=== PATIENT | male | born 1960 | race Caucasian/White ===

== ENCOUNTER → 2017-12-11 09:18 | Outpatient (CLI) | payer MEDICARE, SELFPAY ==
--- NOTE | 2017-12-11 09:22 | XR_ITS ---
XR knee RT 4V HISTORY: Right knee pain ITS.REASON: Right knee pain ORDERING PHYSICIAN: Jeff Wolf MD PATIENT AGE: 57 years COMPARISON: 10/10/2016 FINDINGS: Weightbearing views are performed. There is slight decrease in the joint space medially with minimal osteophyte formation along the medial compartment and patellofemoral joint. No fracture or dislocation. Mild hypertrophic changes present at the fibular head. No lytic or blastic change. IMPRESSION: Mild osteoarthritis of the right knee overall not significantly changed
[2017-12-11 12:22] LABS: Basophils % 0.2 % (0.1-2.0); Eosinophils # 0.3 K/mm3 (0.0-0.4); Eosinophils % 2.5 % (0.1-12.0); Hematocrit 52.2 % (42.0-52.0); Hemoglobin 17.1 g/dL (14.1-18.0); Lymphocytes # 1.3 K/mm3 (0.7-4.5); Lymphocytes % 12.7 K/mm3 (10-50); Mean Corpuscular HGB Conc 32.8 g/dL (31.8-35.4); Mean Corpuscular Hemoglobin 29.4 pg (27.0-31.2); Mean Corpuscular Volume 89.6 fl (80-94); Monocytes # 0.4 K/mm3 (0.1-1.0); Monocytes % 4.3 % (1.7-9.3); Neutrophils # 8.1 K/mm3 (1.8-7.8); Neutrophils % 80.3 % (37.0-80.0); Platelet Count 226 K/mm3 (142-424); Red Blood Count 5.82 M/mm3 (4.60-6.20); Red Cell Distribution Width 13.3 % (11.5-17.5); White Blood Count 10.1 K/mm3 (4.8-10.8)
--- NOTE | 2017-12-11 12:23 | XR_ITS ---
XR chest 2V HISTORY: Tobacco use, history of chest pain ITS.REASON: TOBACCO USE ORDERING PHYSICIAN: Jeff Wolf MD PATIENT AGE: 57 years COMPARISON: 08/17/2016 FINDINGS: The cardiomediastinal silhouette and pulmonary vascularity are within normal limits. The lungs are clear without infiltrates, suspicious nodules, or pleural effusions. 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 IMPRESSION: No acute finding
[2017-12-11 13:46] LABS: Anion Gap 11.4 mEq/L (5-15); Blood Urea Nitrogen 16 mg/dL (7-18); Carbon Dioxide 31 mmol/L (21.0-32.0); Chloride 102 mmol/L (98-107); Estimated Glomerular Filt Rate 69 ml/min (>60); GFR (African American) 83 ML/MIN (>60); Glucose 152 mg/dL (74-106); Potassium 4.4 mmoL/L (3.5-5.1); Sodium 140 mmol/L (136-145)
== END ==
PROVIDERS: PCP Emergency Medicine; Visit Provider Orthopaedic Surgery
DX: M25.561 Pain in right knee (principal); Z01.818 Encounter for other preprocedural examination
CPT/HCPCS: 36415; 71046; 73564; 80048; 85025

== ENCOUNTER 2017-12-16 06:06 | Day surgery (SDC) | payer MEDICARE, SELFPAY ==
[2017-12-16] VITALS (10 sets, daily range): BP systolic 137–163; BP diastolic 79–91; PULSE 67–84; RESP 12–20; TEMP 36.4–43; O2SAT 94–98; BMI 55.2
--- NOTE | 2017-12-16 07:08 | P.PN_ITS ---
[facility] Anesthesia Checklist - Patient Identification Patient Identification: Arm Band - Structural Data Admitted From: Home Planned Operative Procedure/s: right knee arthroscopy Consent for Planned Operative Procedure(s) Verified: Yes Verified Documents: Surgical Consent, History and Physical - NPO Status Verified Time NPO: 00:00 - Additional verifications Anesthesia Reactions: No - Airway Assessment C-Spine Mobility Assessed: Yes TMJ Mobility Assessed: Yes Dentition: Poor Dentition - Neurological Assessment Level of Consciousness: Awake, Alert - Anesthesia Plan Anesthesia Risk discussed: Yes Anesthesia Plan: Verified ASA Class: II Anesthesia Type: General [facility] Anesthesia HX Medical History: Reports:: Cancer (colon/kidney) Denies:: Diabetes Mellitus Type 1, Diabetes Mellitus Type 2, MRSA, Seizures Other Medical History: Denies: Blood Transfusion Reaction Laterality Cases: Left: Arthroscopy Shoulder, Other, Bilateral: Arthroscopy Knee Other Surgeries: Yes: Appendectomy, Colonoscopy Amputation: No Fractures: No *Family Hx:: Coronary Artery Disease
--- NOTE | 2017-12-16 08:42 | HMH.ANESI ---
[facility] Anesthesia Record Part I Intake, IV Amount: 1,200 Estimated blood loss (mL): 0 Urine output (mL): 0 Blood Pressure: 139/81 SaO2: 95 Pulse Rate: 67 Respiratory Rate: 12 Temperature: 98.2 F Patient is:: Drowsy, Stable Stable to PACU at:: 08:40
--- NOTE | 2017-12-16 08:43 | HMH.ANESII ---
[facility] Anesthesia Record Part II Discharge Time: 09:10 Destination: [facility] PACU nurse assessment reviewed?: Yes Patient Condition:: Good Anesthesia Complications:: None
--- NOTE | 2017-12-16 08:44 | P.PN_ITS ---
[facility] Anesthesia Record Part II Discharge Time: 09:10 Destination: [facility] PACU nurse assessment reviewed?: Yes Patient Condition:: Good Anesthesia Complications:: None
--- NOTE | 2017-12-16 08:55 | PC.NURSE ---
0840-REPORT RECEIVED FROM NATACHA MELÉNDEZ/AUDI MARTÍNEZ. ICE APPLIED TO RT KNEE. IPC ON AND GOING TO LLE.
--- NOTE | 2017-12-16 09:24 | PC.NURSE ---
0908-DETAILED REPORT CALLED TO AUDI WISDOM 0910-PT TRANSPORTED TO POST OP VIA STRETCHER W/RAILS UP AND LEFT IN CARE OF AUDI WISDOM W/BED LOCKED IN LOWEST POSITION. VSS. PT STABLE.
--- NOTE | 2017-12-16 09:25 | PC.NURSE ---
0848-LMA REMOVED AT THIS TIME. PT REMAINS ON ROOM AIR, VSS.
--- NOTE | 2017-12-25 11:30 | HMH.OPNOTE ---
Date of procedure: 12/16/17 Pre-op Diagnosis:: Posterior horn medial meniscal tear right knee Post-op diagnosis:: same Procedure performed:: Arthroscopic debridement not posterior horn medial meniscal tear right knee Surgeon:: Jeff Wolf MD Anesthesia: other Estimated blood loss (mL): 5 Operative findings:: Under anesthesia, the patient's examination showed the need to be ligamentously stable. The scopic leg, no loose bodies were noted in the suprapatellar pouch, medial or lateral gutters, medial or lateral compartments, or the notch. The ACL and the PCL were intact. A 2 cm in length posterior medial meniscal tear which was complex and degenerative in nature. Note is made that this is a redictation and as such, reported findings here may be compromised. Referral to the operative photographs would be indicated for more detail. Operative note:: The patient was taken to the operating room and placed in the supine position. An appropriate anesthetic was administered and the contralateral leg placed in a well leg mtz. The right leg was prepped and draped in the usual sterile fashion. The proposed portal sites were injected with lidocaine with epinephrine and a lateral portal established at the joint line just lateral to the patella tendon. The 4 mm arthroscope was inserted and initial examination of the knee conducted. We placed a spinal needle and at the proposed anterior inferior medial site and use it to optimize positioning of this portal. The entire operation was conducted through these 2 portals. After thorough examination with the findings as noted above, we placed the arthroscope in the medial compartment stressing against the lateral post as needed, and assess the meniscal tear with a probe. We used pronation of Arthrex meniscal cutters and a Tenzin shaver to remove the torn portions of the meniscus back to stable tissue. Bits and pieces of the meniscus were removed as needed to improve visualization and also to ensure that no loose bodies remained within the knee. We palpated the popliteal fossa vigorously and extend extended knees work any loose bodies forward so they could be removed. Checked again in the suprapatellar pouch, place the patient in figure 4 position, stressed again against the medial pose, checked the notch again, and checked both gutters. We irrigated and then suctioned excess fluid from the knee. The arthroscopic equipment was then withdrawn and the portals closed and dressings applied. Condition: stable Disposition: PACU Complications:: None
== END 2017-12-16 09:50 | disposition home or self-care (01) ==
LOC: OR 06:08
PROVIDERS: Family Provider Emergency Medicine; PCP Emergency Medicine; Visit Provider Orthopaedic Surgery
PROC: (CPT 29870; principal; 2017-12-16 07:30)
DX: M23.221 Derangement of posterior horn of medial meniscus due to old tear or injury, right knee (principal); Z72.0 Tobacco use
CPT/HCPCS: 29881; 96374; J2405

== ENCOUNTER → 2019-02-03 09:39 | Outpatient (CLI) | payer MEDICARE, SELFPAY ==
--- NOTE | 2019-02-03 09:47 | XR_ITS ---
XR chest 2V HISTORY: ITS.REASON: H/O TOBACCO USE ORDERING PHYSICIAN: Ky Porras PATIENT AGE: 58 years COMPARISON: 12/11/2017 FINDINGS: The cardiomediastinal silhouette and pulmonary vascularity are within normal limits. The lungs are clear without infiltrates, suspicious nodules, or pleural effusions. There is ankylosis of the thoracic spine. There is increased density along the costal vertebral junction on the left involving the 10th rib could be due to an old fracture or bony hypertrophic change not significant change.. IMPRESSION: Chronic changes, no acute finding
[2019-02-03 10:20] LABS: Microscopic, Urine URINE MICROSCOPIC (MICROSCOPIC)
[2019-02-03 11:04] LABS: Appearance,Urine CLEAR (Clear); Blood, Urine Negative (Negative); Color,Urine YELLOW (Yellow); Glucose,Urine (UA) Negative (Negative); Ketones,Urine TRACE (Negative); Leukocyte Esterase,Urine Negative (Negative); Nitrate,Urine Negative (Negative); Protein,Urine TRACE (Negative); Specific Gravity, Urine >= 1.030 (1.005-1.030); Urobilinogen,Urine 0.2 EU/dl (0.2)
[2019-02-03 11:14] LABS: Bilirubin,Urine Negative (Negative)
[2019-02-03 11:15] LABS: Basophils # 0.1 K/mm3 (0-0.2); Basophils % 0.6 % (0.1-2.0); Eosinophils # 0.2 K/mm3 (0.0-0.4); Eosinophils % 1.6 % (0.1-12.0); Hematocrit 47.2 % (42.0-52.0); Hemoglobin 15.9 g/dL (14.1-18.0); Lymphocytes # 1.2 K/mm3 (0.7-4.5); Lymphocytes % 12.2 % (10-50); Mean Corpuscular HGB Conc 33.8 g/dL (31.8-35.4); Mean Corpuscular Hemoglobin 29.6 pg (27.0-31.2); Mean Corpuscular Volume 87.7 fl (80-94); Monocytes # 0.5 K/mm3 (0.1-1.0); Monocytes % 4.7 % (1.7-9.3); Neutrophils % 80.9 % (37.0-80.0); Platelet Count 253 K/mm3 (142-424); Red Blood Count 5.38 M/mm3 (4.60-6.20); Red Cell Distribution Width 13.2 % (11.5-17.5); White Blood Count 9.9 K/mm3 (4.8-10.8)
[2019-02-03 11:24] LABS: Activated Partial Thrombo Time 30.1 seconds (23.6-34.0); INR 1.02 (0.9-1.1); Prothrombin Time 10.5 seconds (9.4-11.8)
[2019-02-03 11:41] LABS: Bacteria,Urine 2+ /lpf; Calcium Oxalate Crystals,Urine 3+ /lpf; Mucus,Urine 2+ /lpf; Squamous Epithelial Cell,Urine Occasional #/hpf (0-5); WBC,Urine Occasional #/hpf (0-3)
[2019-02-03 13:02] LABS: Alanine Aminotransferase 30 U/L (12-78); Albumin/Globulin Ratio 1.3 (1.1-1.8); Alkaline Phosphatase 90 U/L (46-116); Anion Gap 18.3 mEq/L (5-15); Aspartate Amino Transferase 18 U/L (15-37); Bilirubin,Total 0.3 mg/dL (0.2-1.0); Blood Urea Nitrogen 14 mg/dL (7-18); Calcium 9.2 mg/dL (8.5-10.1); Carbon Dioxide 24 mmol/L (21.0-32.0); Chloride 104 mmol/L (98-107); Creatinine,Serum 0.89 mg/dL (0.70-1.30); Estimated Glomerular Filt Rate 87 ml/min (>60); GFR (African American) 106 ML/MIN (>60); Glucose 97 mg/dL (74-106); Potassium 4.3 mmoL/L (3.5-5.1); Sodium 142 mmol/L (136-145)
[2019-02-03 13:56] LABS: Hemoglobin A1C 5.5 % (0.0-7.0)
== END ==
PROVIDERS: PCP Emergency Medicine; Visit Provider Orthopaedic Surgery
DX: Z01.818 Encounter for other preprocedural examination (principal); R53.83 Other fatigue; I49.9 Cardiac arrhythmia, unspecified; E11.9 Type 2 diabetes mellitus without complications; M54.9 Dorsalgia, unspecified
CPT/HCPCS: 36415; 71046; 80053; 81001; 83036; 85025; 85610; 85730; 87070; 87077; 87086; 87186; 93005

== ENCOUNTER → 2019-09-01 11:48 | Outpatient (CLI) | payer MEDICARE, SELFPAY ==
--- NOTE | 2019-09-01 11:52 | XR_ITS ---
PROCEDURE: XR SHOULDER RT MIN 2V CLINICAL INDICATION: Right shoulder pain COMPARISON: SHOU3 [id number] VIEWS from 01/24/2015 SHOU3L [id number] VIEWS from 10/11/2016 FINDINGS: There are osteoarthritic changes of the acromioclavicular joint. No fracture or dislocation. No lytic or blastic change. There are mild osteoarthritic changes also of the glenohumeral joint IMPRESSION: Mild osteoarthritis otherwise negative Dictated by: Cliff Eddy MD 09/01/2019 12:33 Electronically signed by Cliff Eddy MD in [place] 09/01/2019 12:33
== END ==
PROVIDERS: PCP Nurse Practitioner Family; Visit Provider Nurse Practitioner Family
DX: M25.511 Pain in right shoulder (principal)
CPT/HCPCS: 73030

== ENCOUNTER 2021-01-26 14:40 | Emergency (ER) | payer MEDICARE, SELFPAY ==
[2021-01-26 14:52] VITALS: BP 155/92; PULSE 81; RESP 13; TEMP 36.1; O2SAT 99; BMI 27.6
--- NOTE | 2021-01-26 15:02 | XR_ITS ---
PROCEDURE: XR FOOT RT MIN 3V CLINICAL INDICATION: pain COMPARISON: CR FTL3 FOOT-LT-3 VIEWS from 10/10/2016 FINDINGS: No fracture or dislocation. No lytic or blastic change. There is normal mineralization. The joint spaces are well-preserved. No significant degenerative/arthritic changes. No erosive changes evident. Other findings:None. IMPRESSION: No acute findings. Dictated by: Cliff Eddy MD 01/26/2021 15:37 Cliff Eddy MD in [place] 01/26/2021 15:37
--- NOTE | 2021-01-26 15:22 | HMH.EDUTC ---
[facility] Disposition Clinical Impression: Tendinitis of right foot Disposition: Home, Self-Care Condition on Discharge: Good Instructions: Tendinopathy, Achilles Tendinopathy, DI for Achilles Tendinopathy, DI for Foot Pain Additional Instructions: Rest the extremity, Elevate the extremity as tolerated while you are resting. Take the medications as directed. Follow up with Dr. Foote (podiatry) if you continue to have heel pain. I put in a referral but you need to call her office and schedule an appointment. Follow up with your regular doctor. GO TO THE ER FOR ANY WORSENING SYMPTOMS Prescriptions: predniSONE [Prednisone 20mg Tab] 20 mg PO BID 4 Days #8 tab Transmission Status: Received by [facility] Referrals: Regan Rodriguez MD [Primary Care Provider] - Elissa Foote DPM [Staff Physician] - Time of Disposition: 15:46 Medical Decision Making - Medical Records Medical records reviewed: No: I reviewed the patient's medical records. - Nikita Inquiry Pt receiving controlled substance: No Vital Signs: 01/26/21 14:52 01/26/21 15:50 Temperature 97 F L 98 F Temperature Source Tympanic Pulse Rate 79 Pulse Rate [Right] 81 Respiratory Rate 13 16 Blood Pressure 148/80 H Blood Pressure [Right Arm] 155/92 H Blood Pressure Mean [Right Arm] 113 Blood Pressure Source [Right Arm] Automatic Cuff Blood Pressure Position [Right Arm] Sitting 02 Sat by Pulse Oximetry 99 Oxygen Delivery Method Room Air [facility] HPI - General Stated complaint: right foot and heel pain, unknown origin Time Seen by Provider: 01/26/21 15:22 Mode of Arrival: Ambulatory Source of Information: Patient Limitations: No Limitations Description of Symptoms (Recalled from Triage Doc. by RN): pt is having pain 8/10 on his right heel. he is having to use crutches and this has been ongoing for about a week. HEENT Symptoms (Recalled from RN notes): No Resp Symptoms (Recalled from RN notes): No Skin Symptoms (Recalled from RN notes): No MS Symptoms (Recalled from RN notes): Yes (R heel pain) Functional Status (Recalled from RN notes): na - History of Present Illness Provider Complaint: He states that for the past 4 days he has had right heel pain. He denies any known injury. He states that his pain started after he got the 2nd dose of the Moderna covid-19 vaccine. - Related Data Home Medications Medication Instructions Recorded Confirmed baclofen 10 mg tablet 10 mg PO BID tab 12/11/17 05/17/20 gabapentin 800 mg tablet 800 mg PO TID 12/11/17 05/17/20 morphine 30 mg capsule,extended 30 mg PO BID PRN cap 12/11/17 05/17/20 release 24 hr multiphase oxycodone 10 mg tablet 10 mg PO Q8H PRN tab 12/11/17 05/17/20 trazodone 50 mg tablet 50 mg PO QPM PRN tab 12/11/17 05/17/20 meloxicam 15 mg tablet PO 01/16/20 05/17/20 morphine 30 mg tablet,extended PO 01/16/20 05/17/20 release trazodone 150 mg tablet PO 01/16/20 05/17/20 Previous Rx's Medication Instructions Recorded loperamide 2 mg capsule 2 mg PO Q4H PRN #20 cap 01/16/20 prednisone 20 mg tablet 20 mg PO BID 5 Days #10 tab 05/18/20 naproxen 500 mg tablet 500 mg PO BID PRN #30 tab 06/02/20 diclofenac sodium 1 % topical gel 2 g TOPICAL QID #100 g 06/03/20 predniSONE [Prednisone 20mg 20 mg PO BID 4 Days #8 tab 01/26/21 Tab] Allergies Allergy/AdvReac Type Severity Reaction Status Date / Time No Known Allergies Allergy Verified 01/26/21 14:54 - Worker's Comp Is this a Worker's Comp case?: No [facility] History - Hepatitis A Screen Drug use history?: No High risk sexual behaviors?: No History of sexually transmitted infection?: No Currently employed?: No Childcare worker?: No Do you have indoor plumbing?: Yes Do you have electricity?: Yes Attestation statement:: This patient has been screened for Hepatitis A risk factors. I have reviewed the patient's past medical history: Yes Medical History: Reports:: Cancer Denies:: Diabetes Amisha
[2021-01-26 15:50] VITALS: BP 148/80; PULSE 79; RESP 16; TEMP 36.6
== END 2021-01-26 15:52 | disposition home or self-care (01) ==
PROVIDERS: Emergency Provider Nurse Practitioner Family; PCP Emergency Medicine
DX: M77.51 Other enthesopathy of right foot and ankle (principal)
CPT/HCPCS: 73630; 99202; G0463

== ENCOUNTER 2022-03-06 10:44 | Emergency (ER) | payer MEDICARE, SELFPAY ==
[2022-03-06 11:13] VITALS: BP 144/96; PULSE 87; RESP 20; TEMP 36.7; O2SAT 98; BMI 28.8
--- NOTE | 2022-03-06 11:37 | HMH.EDUTC ---
[facility] Disposition Clinical Impression: Low back pain Qualifiers: Chronicity: unspecified Back pain laterality: unspecified Sciatica presence: without sciatica Qualified Code(s): M54.50 - Low back pain, unspecified Disposition: Home, Self-Care Condition on Discharge: Good Instructions: DI for Chronic Pain -- Adult Additional Instructions: Take prescribed medication as prescribed FOllow up with your Family Doctor for further treatment and evaluation if pain continues Warm compresses and over the counter patches may help with pain Straight to ER if any life threatening symptoms Referrals: Nahun Hooker APRN [Primary Care Provider] - As needed Time of Disposition: 12:18 Medical Decision Making - Nikita Inquiry Pt receiving controlled substance: No Nikita was queried for this patient: No Vital Signs: 03/06/22 11:13 Temperature 98.0 F Temperature Source Oral Pulse Rate [Left] 87 Respiratory Rate 20 Blood Pressure [Right Arm] 144/96 H Blood Pressure Mean [Right Arm] 112 02 Sat by Pulse Oximetry 98 Orders (Tests/Meds): ED MEDICATIONS Discontinued Medications Generic Name Dose Route Start Last Admin Trade Name Caren PRN Reason Stop Dose Admin Ketorolac Tromethamine 30 mg 03/06/22 11:51 03/06/22 12:07 Ketorolac 60mg/2ml Vial IM 03/06/22 11:52 30 mg ONCE ONE Administration Methylprednisolone Sodium Succinate 125 mg 03/06/22 11:51 03/06/22 12:07 Methylprednisolone Sod Succ 125mg Vial IM 03/06/22 11:52 125 mg ONCE ONE Administration Medical Decision Narrative: Patient denies new injury discussed xray and patient declined [facility] HPI - General Stated complaint: back pain Time Seen by Provider: 03/06/22 11:37 Mode of Arrival: Ambulatory Source of Information: Patient Limitations: No Limitations Description of Symptoms (Recalled from Triage Doc. by RN): pt c/o back pain. states he pulled something in his back. he was seen in dr peñaloza office on 03/01. he was given a shot and medicattion but he can not remember what it was. 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 States that he seen PCP last week and was given shot and some medication but cant remember what it was but he has taken it all State that it did help but he is still having pain with movement - Related Data Home Medications Medication Instructions Recorded Confirmed gabapentin 800 mg tablet 800 mg PO TID 07/05/21 02/28/22 oxycodone 10 mg tablet 10 mg PO Q8H PRN 07/05/21 02/28/22 morphine 15 mg tablet,extended 15 mg PO tab 09/26/21 02/28/22 release trazodone 150 mg tablet 150 mg PO tab 09/26/21 02/28/22 Previous Rx's Medication Instructions Recorded naproxen 500 mg tablet 500 mg PO BID #30 tab 07/05/21 baclofen 10 mg tablet 10 mg PO Q8H PRN #30 tab 02/28/22 ketorolac 10 mg tablet 10 mg PO TID PRN #30 tab 02/28/22 Allergies Allergy/AdvReac Type Severity Reaction Status Date / Time No Known Allergies Allergy Verified 03/06/22 11:16 - Worker's Comp Is this a Worker's Comp case?: No Is this an H Worker's Comp?: No Is this a Patsy Worker's Comp?: No H History - Hepatitis A Screen Drug use history?: No High risk sexual behaviors?: No History of sexually transmitted infection?: No Currently employed?: No Childcare worker?: No Do you have indoor plumbing?: Yes Do you have electricity?: Yes Attestation statement:: This patient has been screened for Hepatitis A risk factors. I have reviewed the patient's past medical history: Yes Medical History: Reports:: Cancer Denies:: Diabetes Mellitus Type 1, Diabetes Mellitus Type 2, MRSA, Seizures Other Medi
[2022-03-06 12:20] VITALS: BP 144/96; PULSE 87; RESP 20; TEMP 36.7
== END 2022-03-06 12:26 | disposition home or self-care (01) ==
PROVIDERS: Emergency Provider Nurse Practitioner; PCP Nurse Practitioner Family
DX: M54.50 Low back pain, unspecified (principal); M19.90 Unspecified osteoarthritis, unspecified site; Z79.899 Other long term (current) drug therapy; Z85.9 Personal history of malignant neoplasm, unspecified; Z87.891 Personal history of nicotine dependence; Z82.49 Family history of ischemic heart disease and other diseases of the circulatory system; Z82.69 Family history of other diseases of the musculoskeletal system and connective tissue; Z81.8 Family history of other mental and behavioral disorders
CPT/HCPCS: 96372; 99213; G0463

== ENCOUNTER → 2022-11-29 10:01 | Outpatient (CLI) | payer MEDICARE, SELFPAY ==
--- NOTE | 2022-11-29 10:02 | MR_ITS ---
FINAL REPORT TECHNIQUE: Multiplanar and multisequence imaging of the lumbar spine was obtained without contrast. CLINICAL HISTORY: Low back pain COMPARISON: none FINDINGS: There is normal alignment of the lumbar vertebral bodies. Vertebral body height is preserved. The spinal cord ends at the level of L1. There is normal signal intensity within the substance of the distal spinal cord. Bone marrow signal intensity is normal. No acute paraspinal abnormality is identified. The right kidney is not identified in its expected location. L1-2: No disc herniation, canal stenosis, or foraminal narrowing. L2-3: No focal disc herniation. Bilateral facet osteoarthropathy. No central canal stenosis. Mild bilateral foraminal narrowing. L3-4: Annular disc bulge with bilateral facet osteoarthropathy. Moderate canal stenosis, likely has both developmental and degenerative component. Mild bilateral foraminal narrowing. L4-5: Annular disc bulge. Mild degenerative endplate changes and bilateral facet arthropathy. Severe canal stenosis. No foraminal stenosis. L5-S1: Mild annular disc bulge and facet osteoarthropathy. No canal stenosis. Mild right and [id number] left foraminal narrowing. IMPRESSION: Multilevel degenerative disc disease. There is also likely a component of developmental canal stenosis in addition to degenerative change. Reviewed, Interpreted and Dictated by Tawana Hilario MD Transcribed by Maggie Thomas Authenticated and [facility]
== END ==
PROVIDERS: PCP Family Medicine; Visit Provider Nurse Practitioner Family
DX: M54.50 Low back pain, unspecified (principal)
CPT/HCPCS: 72148; 76376

== ENCOUNTER → 2022-12-12 09:59 | Outpatient (POV) | payer MEDICARE, SELFPAY ==
[2022-12-12 10:03] VITALS: BP 141/90; PULSE 86; RESP 18; O2SAT 98; BMI 28.5
--- NOTE | 2022-12-12 10:25 | EXP.PAIN.OV ---
HPI Data of Consult Patient: new to practice Consult date: 12/12/22 Requesting Physician: Shellie Gar APRN Primary Care Provider: Regan Rodriguez MD Consult Narrative Reason for consult: Low back pain, right leg pain History of present illness: Mr. Cook is a 62 year old male who presents today as a new patient. He is a referral from Dr. Alexandra's office. Today he rates his pain a 7 out of 10. Patient states his pain is all in his low back with radiating symptoms into his right leg. Patient does describe this as a aching sensation with numbness and tingling. Patient states this is all related to a injury back in the involving a forklift. Patient states that it did get stuck and then he tried to manually move it and caused significant trauma. Patient states this is progressively worsened over time. Patient states he only has 1 kidney and cannot tolerate any NSAIDs due to this. Patient has tried Tylenol with no additional improvement. Patient states that heat aggravates his pain symptoms however ice does help. Patient does use Biofreeze however this is only temporary relief. Patient has been in pain management in [place] by Dr. Hendrickson for quite some time. Patient states he has had multiple injections including 24 down his spine as well as ablations with minimal improvement. Patient is currently managed with oxycodone 10 mg twice a day, gabapentin 800 mg 3 times a day and morphine sulfate ER 15 mg daily from this office. Patient denies any side effects from these medications. Patient states at his last visit with them he did tell them he did not want to continue to do injections due to his worsening pain symptoms. Patient is currently starting physical therapy and at this time states he cannot tell whether or not if he is getting any additional relief. Patient states he is trying to avoid having additional neurosurgery such as a fusion or laminectomy. Patient denies any prior surgical intervention. His Nikita is [phone]. Its been reviewed and appropriate. CC: Shellie Gar APRN [facility] Disclaimer: The information contained in this section may have been updated after the patient was seen, as this information can be updated by other users. Medical History (Updated 12/12/22 @ 10:30 by Shellie Gar APRN) Back Pain Social History (Updated 12/12/22 @ 10:24 by Soumya E Works, RN) Smoking Status: Former smoker second hand exposure: No alcohol intake: never substance use type: denies use current occupational status: retired Travel in the last 8 weeks: None household members: family housing: house Review of Systems Review of Systems Review of systems:: pertinent systems reviewed and negative unless documented below Review of systems (narrative): Review of Systems: General: No recent weight changes, no fever, no sleep disturbances Respiratory: No cough, no shortness of air, no recurring pulmonary infections Cardiovascular/peripheral vascular: No chest pain, no palpitations, no edema, no shortness of breath Gastrointestinal: No new onset incontinence, normal bowel movements reported Genitourinary: No new onset incontinence Musculoskeletal: Low back pain, right leg pain Psychiatric: [Normal mood/affect] Neurological: [Denies weakness in extremities], [denies balance issues] Meds Home Medications and Allergies Home Medications Medication Instructions Recorded Confirmed Type gabapentin 800 mg tablet 800 mg PO TID Pain 07/05/21 12/12/22 History oxycodone 10 mg tablet 10 mg PO Q8H PRN Pain 07/05/21 12/12/22 History morphine 15 mg tablet,extended 15 mg PO DIRECTED Pain 09/26/21 12/12/22 History release ketorolac 10 mg tablet 10 mg PO TID PRN pain #30 tabs 02/28/22 12/12/22 Rx baclofen 10 mg tablet See Rx Instructions .Route 12/12/22 12/12/22 History .COMPLEX Pain naproxen 500 mg tablet See Rx Instructions .Route 12/12/22 12/12/22 History .COMPLEX Pain trazodone 150 mg table
== END ==
PROVIDERS: PCP Emergency Medicine; Visit Provider Nurse Practitioner Family
DX: M51.36 Other intervertebral disc degeneration, lumbar region (principal); G89.29 Other chronic pain; M79.604 Pain in right leg; M54.41 Lumbago with sciatica, right side; M48.00 Spinal stenosis, site unspecified; M47.816 Spondylosis without myelopathy or radiculopathy, lumbar region
CPT/HCPCS: 99202; G0463

== ENCOUNTER → 2023-01-10 11:05 | Outpatient (POV) | payer MEDICARE, SELFPAY ==
--- NOTE | 2023-01-10 11:28 | EXP.PAIN.SOA ---
[facility] Pain Management SOAP Note Subjective:: Mr. Cook is a 62 year old male who presents for follow-up. We are currently treating the patient for degenerative disc disease of lumbar spine with lumbar radiculopathy symptoms, lumbar facet arthropathy, lumbar spinal stenosis, multilevel disc bulges, chronic pain, right leg pain. Today he rates his pain a 8 out of 10.? Patient denies any new trauma or injury. Patient denies any change location or type of pain he experiences. He continues to state his pain is all in his low back with radiating symptoms into his right leg.? Patient does describe this as a aching sensation with numbness and tingling.? Patient has had multiple injections in the past from a different facility and states that he did not get significant relief and is not interested in injective therapy. 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 He only has 1 kidney and cannot tolerate NSAID use. Patient has tried and failed conservative therapy such as oral medications, heat and ice, topicals. He continues to go to physical therapy however has not noticed if it is helping him at this point. He states he frequently is very sore following his visits. At our last visit we did discuss trying the patient is a pleasant trial however he states today that he is not interested in this option right now. He states he has been having some eye issues and is scheduled for cataract surgery on the . Patient is currently managed with oxycodone 10 mg twice a day, gabapentin 800 mg 3 times a day and morphine sulfate ER 15 mg daily from this office.? Patient denies any side effects from these medications.? His Nikita is [phone].? Its been reviewed and appropriate. Review of Systems: General: No recent weight changes, no fever, no sleep disturbances Respiratory: No cough, no shortness of air, no recurring pulmonary infections Cardiovascular/peripheral vascular: No chest pain, no palpitations, no edema, no shortness of breath Gastrointestinal: No new onset incontinence, normal bowel movements reported Genitourinary: No new onset incontinence Musculoskeletal: Low back pain Psychiatric: [Normal mood/affect] Neurological: [Denies weakness in extremities], [denies balance issues] Objective:: Physical Exam: General: Alert and oriented x3, no acute distress, pleasant and cooperative Lungs: Respirations even and unlabored, symmetrical chest expansion Eyes: PERRL Musculoskeletal: Flexion and extension of lumbar [spine] somewhat guarded secondary to pain, [antalgic gait noted] Neurological: Speech clear, no gross sensory deficit Assessment:: Degenerative disc disease of lumbar spine with lumbar radiculopathy symptoms, lumbar facet arthropathy lumbar spinal stenosis multilevel bulging disc, chronic pain, right leg pain Plan:: Patient continues to experience significant pain in his low back with radiating symptoms. I have reviewed over with the patient the intrathecal pain pump trial and explained that if he does decide to proceed forward with this plan of care in the future that he can contact our office and make his next follow-up appointment. Patient has been instructed to contact the clinic with any concerns before the next appointment. Dr. Maravilla has reviewed this note and agrees with this plan of care. This note was dictated using voice recognition software and make contain errors or omissions. [facility] Disclaimer: The information contained in this section may have been updated after the patient was seen, as this information can be updated by other users. Medical History (Updated 12/12/22 @ 10:30 by Shellie Gar APRN) Back Pain Social History (Updated 12/12/22 @ 10:24 by Soumya Gomez RN) Smoking Status: Former smoker second hand exposure: No alcohol intake: never substance use type: denies use current occupational status: retired Travel in the last 8 weeks: None household members: family
[2023-01-10 11:54] VITALS: BP 137/100; PULSE 82; RESP 18; O2SAT 97; BMI 30.2
== END ==
PROVIDERS: PCP Emergency Medicine; Visit Provider Nurse Practitioner Family
DX: M51.16 Intervertebral disc disorders with radiculopathy, lumbar region (principal); M48.061 Spinal stenosis, lumbar region without neurogenic claudication; M47.26 Other spondylosis with radiculopathy, lumbar region; M79.604 Pain in right leg; G89.29 Other chronic pain
CPT/HCPCS: 99212; G0463

== ENCOUNTER 2023-01-29 10:30 | Outpatient (RCR) | payer MEDICARE, SELFPAY ==
--- NOTE | 2022-12-06 16:08 | HMH.PTOPEV ---
PT Outpatient Evaluation Rehab PT Outpatient Evaluation Start: 12/06/22 15:46 Freq: Status: Active Protocol: Document 12/06/22 15:48 PHOCALVIN (Rec: 12/06/22 16:08 PHORNE [id number]) E-signed By Jeovany Laguna, PT Outpatient Therapy Subjective History Subjective History Thi is the initial PT eval for Jose Francisco Alvarezood 62 yowm who presents with c/o chronic LBP x 3-4 yrs with gradually worsening symptoms. He reports intermittent numbness and tingling in the R LE also. He reports hx of R BERNABE which also results in further R LE pain. He reports increased pain with all ADLs and transfers. Pain is decreased with ice and exacerbated with heat. MRI was performed which shows L3/4 -L5/S1 disc bulges. He reports PMH of HTN. Chief Complaint Pain,Stiff Symptom Type Ache,Burning Symptoms Relieved By Rest/Positioning,Ice Symptoms Aggravated By Standing,Physical Activity, Walking,Lifting Prior Functional Limitations None Current Functional Limitations Lifting,Housework,Standing, Recreation Activity,Walking Symptom Description Constant but Variable Level of pain today (0-10) 7 Pain scale - at its worst (0-10) 10 Lumbopelvic Eval Posture Lumbar Spine Posture Standing Position Decreased Lordosis Palapation tenderness bilateral lumbar spinal tenderness Yes paraspinal tenderness Yes Lumbar/Sacral Palpation Findings Tenderness Accessory Movement L-spine Vertebrae Accessory Movements Central P/A [place] that Elicit Symptoms L2 bilateral L3 bilateral L4 bilateral L5 bilateral S1 bilateral Range of Motion Lumbar Spine Active Flexion Range of 0-35 Motion (degrees) Lumbar Spine Active Extension Range of 0-10 Motion (degrees) Left Lumbar Spine Lateral Flexion Active 0-10 Range of Motion (degrees) Right Lumbar Spine Lateral Flexion 0-10 Active Range of Motion (degrees) Manual Muscle Test Bilateral Knee Extension Strength Grade 5 Normal Knee Flexion Strength Grade 5 Normal Hip Flexion Strength Grade 3+ Fair+ Hip Abduction Strength Grade 3+ Fair+ Hip Adduction Strength Grade 4 Good Extensor Hallu
--- NOTE | 2023-01-11 10:19 | HMH.RHREAS ---
Rehab Reassessment Rehab OP Re-assessment Start: 01/11/23 10:12 Freq: Status: Active Protocol: Document 01/11/23 10:12 JOANA (Rec: 01/11/23 10:19 PHOCALVIN [id number]) E-signed By Jeovany Laguna, PT Rehab Re-assessment Subjective Subjective Pt reports pain this date 05/20 in L side low back/SI area. I haven't had any pain down my legs for a couple weeks, but my back over here on the left is hurting worse. Objective Objective Notes MMT: B hip FLEX 4/5, ABD 4/5, ADD 4/5. AROM LUMBAR SPINE (in deg): FLEX= 0-50, EXT= 0-12, L SB= 0 -15, R SB= 0-10. PAIN: 05/20 CURRENTLY. No radicular symptoms noted this date in either LE. Assessment Progress Assessment Progressing as Expected Assessment Notes He has shown significant improvements in lumbar ROM, especially in FLEX, with increased strength as well. He continues to have quite a bit of pain in the low back, but definite centralization of his symptoms without radiculopathy noted in B LE at this time. Continues to require further therapy to meet short and termination clerk goals . Patient goals met ST,3,[address],4,5 LT,2,3,4,5,6 ,7,8 Revised Goals none Plan Plan Continue per initial POC. Frequency of Therapy 2 x/wk Duration of therapy 4 wks Time and Billing Re-Eval Time 16 Re-Eval Billing Units 1 PHYSICIAN CERTIFICATION: I certify the specified therapy services for Jose Francisco Cook are required, authorized, and reviewed every 30 days.
== END 2023-01-29 10:35 | disposition home or self-care (01) ==
LOC: PT 10:30
PROVIDERS: PCP Family Medicine; Visit Provider Nurse Practitioner Family
DX: M54.50 Low back pain, unspecified (principal); M51.36 Other intervertebral disc degeneration, lumbar region
CPT/HCPCS: 97010; 97012; 97014; 97110; 97163; 97164; G0283

== ENCOUNTER → 2023-01-31 23:21 | Outpatient (CLI) | payer MEDICARE, SELFPAY ==
[2023-01-31 18:21] LABS: Basophils # 0.1 K/mm3 (0-0.2); Basophils % 0.6 % (0.1-2.0); Eosinophils # 0.2 K/mm3 (0.0-0.4); Eosinophils % 2.2 % (0.1-12.0); Hematocrit 47.2 % (42.0-52.0); Hemoglobin 15.6 g/dL (14.1-18.0); Lymphocytes # 1.1 K/mm3 (0.7-4.5); Lymphocytes % 10.7 % (10-50); Mean Corpuscular Hemoglobin 28.7 pg (27.0-31.2); Monocytes # 0.7 K/mm3 (0.1-1.0); Monocytes % 6.7 % (1.7-9.3); Neutrophils # 7.9 K/mm3 (1.8-7.8); Neutrophils % 79.7 % (37.0-80.0); Platelet Count 252 K/mm3 (142-424); Red Blood Count 5.43 M/mm3 (4.60-6.20); Red Cell Distribution Width 13.8 % (11.5-17.5); White Blood Count 9.9 K/mm3 (4.8-10.8)
[2023-01-31 18:30] LABS: Alanine Aminotransferase 45 U/L (12-78); Albumin Level 4.2 g/dl (3.5-5.0); Alkaline Phosphatase 78 U/L (38-126); Anion Gap 7.6 mEq/L (5-15); Aspartate Amino Transferase 38 U/L (17-59); Bilirubin,Total 0.6 mg/dl (0.2-1.3); Blood Urea Nitrogen 25 mg/dl (9-20); Calcium 8.7 mg/dl (8.4-10.2); Carbon Dioxide 28 mmol/L (22.0-30.0); Chloride 104 mmol/L (98-107); Chol/HDL Ratio 3.9 (1-3.5); Cholesterol 120 mg/dl (140-200); Estimated Glomerular Filt Rate 61 ml/min (>60); GFR (African American) 74 ML/MIN (>60); Globulin 2.1 g/dL (1.3-3.2); Glucose 88 mg/dl (74-100); HDL Cholesterol 31 mg/dl (40-60); Potassium 4.6 mmoL/L (3.5-5.1); Sodium 135 mmol/L (136-145); Total Protein,Serum 6.3 g/dl (6.3-8.2); Triglycerides 235 mg/dl (30-150); VLDL Cholesterol 47 mg/dL (0-40)
[2023-01-31 18:42] LABS: Direct LDL Cholesterol 71.72 mg/dL (100-129)
[2023-01-31 19:00] LABS: Prostate Specific Ag Screen 0.5 ng/ml (0.0-4.0); Thyroid Stimulating Hormone 0.17 uIU/mL (0.465-4.68)
== END ==
PROVIDERS: PCP Nurse Practitioner Family; Visit Provider Nurse Practitioner Family
DX: I10 Essential (primary) hypertension (principal); R79.89 Other specified abnormal findings of blood chemistry; E05.90 Thyrotoxicosis, unspecified without thyrotoxic crisis or storm; Z12.5 Encounter for screening for malignant neoplasm of prostate; M54.41 Lumbago with sciatica, right side
CPT/HCPCS: 80053; 80061; 84443; 85025; G0103

== ENCOUNTER → 2023-09-23 16:00 | Outpatient (CLI) | payer MEDICARE, SELFPAY ==
[2023-09-23 12:20] LABS: Influenza A, PCR Not Detected (NotDetected); Influenza B, PCR Not Detected (NotDetected)
[2023-09-23 13:33] LABS: Coronavirus 19, PCR Detected (NotDetected)
== END ==
PROVIDERS: PCP Nurse Practitioner Family; Visit Provider Internal Medicine
DX: R06.02 Shortness of breath (principal); U07.1 COVID-19
CPT/HCPCS: 87636

== ENCOUNTER 2024-09-02 12:24 | Observation (INO) | payer MEDICARE, SELFPAY ==
[2024-09-02 12:26] VITALS: BP 113/75; PULSE 118; RESP 20; TEMP 36.5; O2SAT 93; BMI 29.5
[2024-09-02] MEDS: ONDANSETRON 4MG/2ML VIAL 4 MG IV (12:48)
--- NOTE | 2024-09-02 12:53 | CT_ITS ---
PROCEDURE INFORMATION: Exam: CT Abdomen And Pelvis With Contrast Exam date and time: 09/02/2024 1:31 PM Age: 63 years old Clinical indication: Abdominal pain; Additional info: Gen abd pain/n/v, extensive surgical HX TECHNIQUE: Imaging protocol: Computed tomography of the abdomen and pelvis with contrast. Radiation optimization: All CT scans at this facility use at least one of these dose optimization techniques: automated exposure control; mA and/or kV adjustment per patient size (includes targeted exams where dose is matched to clinical indication); or iterative reconstruction. Contrast material: ISOVUE; Contrast volume: 75 ml; Contrast route: IV; COMPARISON: MR LUMBAR SPINE WO CON 11/29/2022 11:06 AM FINDINGS: Lungs: See Bones/joints finding. Liver: Unremarkable liver, gallbladder, and bile ducts. Gallbladder and biliary ducts: See Liver finding. Pancreas: Normal. No ductal dilation. Spleen: Peripherally enhancing 14 mm nodule at the splenic dome most suggestive of hemangioma. Multiple tiny calcified granulomas in the spleen. Adrenal glands: Normal. No mass. Kidneys and ureters: Normal. No hydronephrosis. Stomach and bowel: Multiple dilated small bowel loops are present. Suspected transition point in the right lower quadrant at site of surgical goldy (image 73 series 3, image 25 series 1001). Gas and stool are present in large bowel. Appendix: No evidence of appendicitis. Intraperitoneal space: No appreciable pneumoperitoneum, ascites, or abscess. Vasculature: Unremarkable. No abdominal aortic aneurysm. Lymph nodes: Unremarkable. No enlarged lymph nodes. Urinary bladder: Unremarkable as visualized. Reproductive: Unremarkable as visualized. Bones/joints: Total right hip arthroplasty without appreciable hardware complication. Dependent subsegmental atelectasis right lung base. Soft tissues: Unremarkable. IMPRESSION: Partial small bowel obstruction. Suspected transition point in the right lower quadrant adjacent to surgical goldy.
--- NOTE | 2024-09-02 12:53 | HMH.EDGENADL ---
Discharge Plan Disposition Patient Disposition: Admitted Condition: Good Prescriptions Prescriptions: No Action gabapentin 800 mg tablet 800 mg PO TID oxycodone 10 mg tablet 10 mg PO Q8H PRN (Reason: Pain) morphine 15 mg tablet extended release 15 mg PO DIRECTED mupirocin 2 % ointment 1 applic topical BID 14 Days Qty: 15 0RF benzonatate 100 mg capsule 100 mg PO TID PRN (Reason: cough) Qty: 30 1RF albuterol sulfate 90 mcg/actuation HFA aerosol inhaler 2 puff inhalation Q4-6H PRN (Reason: shortness of breath or wheezing) Qty: 8.5 0RF naproxen 500 mg tablet See Rx Instructions .ROUTE .COMPLEX Qty: 30 2RF Dose Instruction: TAKE ONE TABLET BY MOUTH TWICE DAILY --TAKE WITH FOOD-- Rx Instructions: TAKE ONE TABLET BY MOUTH TWICE DAILY --TAKE WITH FOOD-- baclofen 10 mg tablet See Rx Instructions .ROUTE .COMPLEX Qty: 30 2RF Dose Instruction: TAKE ONE TABLET BY MOUTH EVERY 8 HOURS NEEDED FOR MUSCLE SPASMS MAY CAUSE DROWSINESS Rx Instructions: TAKE ONE TABLET BY MOUTH EVERY 8 HOURS NEEDED FOR MUSCLE SPASMS MAY CAUSE DROWSINESS trazodone 150 mg tablet See Rx Instructions .ROUTE .COMPLEX Qty: 180 3RF Dose Instruction: TAKE TWO TABLETS BY MOUTH EVERY DAY AT BEDTIME Rx Instructions: TAKE TWO TABLETS BY MOUTH EVERY DAY AT BEDTIME lisinopril 10 mg tablet 10 mg PO DAILY Qty: 100 3RF Referrals Follow up/Referrals: Derrick Pitts APRN [Primary Care Provider] - See instructions Clinical Impressions Clinical Impression: Bowel obstruction, TANYA (acute kidney injury) Instructions Patient Instructions: DI for Diarrhea and Traveler's Diarrhea -- Adult, DI for Diarrhea and Traveler's Diarrhea -- Child, DI for Nausea -- Adult, DI for Nausea -- Child Print Language Print Language: Israeli Discharge ED Provider: Shellie Hilton General Adult HPI General Chief complaint: Nausea/Vomiting/Diarrhea Stated complaint: vomiting, abd pain, H/A Time Seen by Provider: 09/02/24 12:39 Mode of Arrival: Ambulatory Source of Information: Patient Limitations: No Limitations Description of Symptoms (Recalled from ER Triage Doc. by RN): c/o vomting for 2 days, belly sore from vomiting with runny nose and feeling bad. History of Present Illness HPI narrative: This patient is a 63-year-old male with a history of prior bowel obstructions with prior colectomy, chronic pain, hypertension, and tobacco use presenting to the emergency department for evaluation with concern for abdominal pain, bloating, distention, nausea, and vomiting. Patient states that 2 days ago, he started having distention, feeling like someone had pumped his abdomen full of air. He states that he then developed nausea and vomiting which is nonbloody nonbilious. He notes that he had a bowel movement yesterday, that was small and not necessarily normal for him. Today, he has not had any bowel movements or pass gas. He notes intractable nausea and vomiting and is overall just feeling bad. Abdominal pain is generalized. Related Data Home Medications ?Medication ?Instructions ?Recorded ?Confirmed gabapentin 800 mg tablet 800 mg PO TID Pain 07/05/21 08/12/24 oxycodone 10 mg tablet 10 mg PO Q8H PRN Pain 07/05/21 08/12/24 morphine 15 mg tablet,extended 15 mg PO DIRECTED Pain 09/26/21 08/12/24 release Previous Rx's ?Medication ?Instructions ?Recorded naproxen 500 mg tablet See Rx Instructions .Route 07/10/23 .COMPLEX #30 tabs baclofen 10 mg tablet See Rx Instructions .Route 09/20/23 .COMPLEX #30 tabs albuterol sulfate 90 mcg/actuation 2 puff inhalation Q4-6H PRN 05/21/24 aerosol inhaler shortness of breath or wheezing #8.5 grams benzonatate 100 mg capsule 100 mg PO TID PRN cough #30 caps 05/21/24 trazodone 150 mg tablet See Rx Instructions .Route 06/26/24 .COMPLEX #180 tabs mupirocin 2 % topical ointment 1 applic topical BID infection 14 08/12/24 days #15 grams lisinopril 10 mg tablet 10 mg PO DAILY #100 tabs 08/19/24 Allergies Allergy/AdvReac Type Severity Reaction Status Date / Time No Known Allergies Allergy Verified 08/12/24 14:36 [facility] Disclaimer: The information contained in this section may have been updated after the patient was seen, as this information can be updated by other users. Medical History Back Pain Social History Smoking Status: Former smoker tobacco type: cigarettes packs per day: 1 second hand exposure: No alcohol intake: never substance use type: denies use current occupational status: employed Travel in the last 8 weeks: None household members: family housing: house Other Medical History Have you received the Flu Vaccine for this season: No Have you received the Pneumonia Vaccine: No ROS Obtained: Yes All systems reviewed & no additional complaints except as documented Physical Exam General General appearance: alert and in no apparent distress Head Head exam: atraumatic and normocephalic Eye Eye exam: Present normal appearance, PERRL and EOMI ENT ENT exam: Present normal exam, normal oropharynx, mucous membranes moist and normal external ear exam Neck Neck exam: Present normal inspection, full ROM and trachea midline; Absent tenderness Chest Chest inspection: Present normal inspection and symmetric chest wall rise; Absent tenderness Respiratory Respiratory exam: Present normal lung sounds bilaterally; Absent respiratory distress, wheezes, stridor or accessory muscle use Cardiovascular Cardiovascular exam: Present regular rate and normal rhythm Abdominal Exam Abdominal exam: Present distention and tenderness (Generalized); Absent guarding, rebound or rigidity Extremities Exam Extremities exam: Present normal inspection, full ROM and normal capillary refill; Absent tenderness or edema Back Exam Back exam: Present normal inspection and full ROM; Absent tenderness Neurological Exam Neurological exam: Present alert, oriented X3, CN II-XII intact and normal gait; Absent motor sensory deficit Psychiatric Psychiatric exam: Present normal affect and normal mood Skin Skin exam: Present warm and diaphoresis Medical Decision Making Medical Records Medical records reviewed: Yes I reviewed the patient's medical records. Screening: Per USPSTF and CDC recommendations, given the prevalence of disease in our region, it is our hospital?s policy to screen for HIV and viral Hepatitis for all patients aged 18 and over and those with ongoing risk factors. Nikita Inquiry Pt receiving controlled substance: No Vital Signs: 09/02/24 12:26 09/02/24 14:23 Temperature 97.7 F 98.0 F Temperature Source Oral Pulse Rate 77 Pulse Rate [Left Radial] 118 H Respiratory Rate 20 13 Blood Pressure 122/66 Blood Pressure [Right Arm] 113/75 Blood Pressure Mean [Right Arm] 87 Blood Pressure Source [Right Arm] Automatic Cuff Blood Pressure Position [Right Arm] Sitting 02 Sat by Pulse Oximetry 93 L 95 Oxygen Delivery Method Room Air Room Air Lab Data Lab results reviewed: Yes I reviewed the patient's lab results. Lab Results 09/02/24 12:33: WBC 9.2, RBC 6.01, Hgb 17.4, Hct 51.6, MCV 85.9, MCH 29.0, MCHC 33.8, RDW 15.4, Plt Count 274, MPV 7.6, Neut % (Auto) 80.5 H, Lymph % (Auto) 9.1 L, [place] % (Auto) 9.1, Eos % (Auto) 0.7, Baso % (Auto) 0.7, Neut # (Auto) 7.4, Lymph # (Auto) 0.8, [place] # (Auto) 0.8, Eos # (Auto) 0.1, Baso # (Auto) 0.1, Sodium 137, Potassium 4.1, Chloride 92 L, Carbon Dioxide 34 H, Anion Gap 15.1 H, BUN 52 H, Creatinine 1.90 H, Estimated Creat Clear 58, Estimated GFR 36 L, Est GFR ( Amer) 43 L, Glucose 154 H, Calcium 9.6, Total Bilirubin 1.0, AST 31, ALT 30, Alkaline Phosphatase 69, Total Protein 7.9 D, Albumin 4.8, Globulin 3.1, Albumin/Globulin Ratio 1.5, Lipase 27 09/02/24 13:35: Lactate 1.2 09/02/24 12:33 09/02/24 12:33 Orders (Tests/Meds): ED MEDICATIONS Discontinued Medications Generic Name Dose Route Start Last Admin Trade Name Miguelq PRN Reason Stop Dose Admin Lactated Ringer's 1,000 mls @ 999 mls/hr 09/02/24 13:25 09/02/24 13:39 Lactated Ringer's 1000 Ml Bag IV 09/02/24 14:25 999 mls/hr .Q1H1M ONE Administration Iopamidol 75 ml 09/02/24 13:32 09/02/24 13:33 Iopamidol-370 (76%);100ml Bottle IV 09/02/24 13:33 75 ml ONCE ONE Administration Metoclopramide HCl 10 mg 09/02/24 14:48 09/02/24 15:00 Metoclopramide Hcl 10mg/2ml Vial IVP 09/02/24 14:49 10 mg ONCE ONE Administration Ondansetron HCl 4 mg 09/02/24 12:48 09/02/24 12:48 Ondansetron 4mg/2ml Vial IV 09/02/24 12:49 4 mg ONCE ONE Administration Sodium Chloride 10 ml 09/02/24 13:32 09/02/24 13:33 Sodium Chloride 0.9% 10ml Syr (Rad Only) IV 09/02/24 13:33 10 ml ONCE ONE Administration ORDERS Category Date Time Status CT abdomen pelvis w con Stat Cat Scan 09/02/24 12:53 Completed Consult to General Surgery [CONS] Stat Cons 09/02/24 14:12 Ordered Complete Blood Count Auto Diff AMLAB Lab 09/03/24 06:00 Ordered Complete Blood Count Auto Diff Stat Lab 09/02/24 12:33 Completed Comprehensive Metabolic Panel AMLAB Lab 09/03/24 06:00 Ordered Comprehensive Metabolic Panel Stat Lab 09/02/24 12:33 Completed HIV (1&2) Antibody Rapid Stat Lab 09/02/24 12:33 Received Hep C Ab with Reflex to RNA Stat Lab 09/02/24 12:33 Received Lactic Acid Stat Lab 09/02/24 13:35 Completed Lipase Stat Lab 09/02/24 12:33 Completed Magnesium AMLAB Lab 09/03/24 06:00 Ordered Medical Decision Narrative: In summary, this patient is a 63-year-old male presenting to the Emergency Department for evaluation of generalized abdominal pain, nausea, and vomiting. Differential diagnoses considered include but are not limited to bowel obstruction, colitis, gastroenteritis, constipation, pancreatitis. Ruling out the most morbid conditions drove assessment. It should be noted patient's history includes tobacco dependence, hypertension, chronic pain which may or may not be at goal therapy. This complicates all aspects of care by increasing patient's risk for morbidity. I reviewed patient's past medical records and noted previous PCP evaluations for chronic pain. On exam, the patient is diaphoretic and actively vomiting. He has abdominal distention with generalized tenderness but no rebound or guarding. Workup included CBC, CMP, lipase, lactic acid, and CT abdomen pelvis with IV contrast. Patient was given a bolus of IV fluid as well as IV Zofran. I independently interpreted the scan prior to the radiologist read and noted concern for bowel obstruction without evidence of perforation. Please see their read for final interpretation. Labs were obtained that demonstrated TANYA with a creatinine up to 1.9 from 1.2. I paged general surgery to initiate consultation for small bowel obstruction with plan to admit the patient. I had an interactive discussion with Dr. Horne with general surgery who advised that he felt comfortable following the patient here given lack of significant comorbidities. I had an interactive discussion with the patient and advised that we could do an NG tube placement for symptomatic management, however he states that he had had that in the past and adamantly refuses. Will reassess need. In the meantime, he was given IV Reglan for continued nausea. I had an interactive discussion with the hospitalist who admitted the patient in stable condition for further evaluation and management. Critical Care Critical Care Time Critical Care Time: No
[2024-09-02 12:56] LABS: Basophils # 0.1 K/mm3 (0-0.2); Basophils % 0.7 % (0.1-2.0); Eosinophils # 0.1 K/mm3 (0.0-0.4); Eosinophils % 0.7 % (0.1-12.0); Hematocrit 51.6 % (42.0-52.0); Hemoglobin 17.4 g/dL (14.1-18.0); Lymphocytes # 0.8 K/mm3 (0.7-4.5); Lymphocytes % 9.1 % (10-50); Mean Corpuscular HGB Conc 33.8 g/dL (31.8-35.4); Mean Corpuscular Volume 85.9 fl (80-94); Mean Platelet Volume 7.6 fl (7.4-10.4); Monocytes # 0.8 K/mm3 (0.1-1.0); Monocytes % 9.1 % (1.7-9.3); Neutrophils # 7.4 K/mm3 (1.8-7.8); Neutrophils % 80.5 % (37.0-80.0); Platelet Count 274 K/mm3 (142-424); Red Blood Count 6.01 M/mm3 (4.60-6.20); Red Cell Distribution Width 15.4 % (11.5-17.5); White Blood Count 9.2 K/mm3 (4.8-10.8)
[2024-09-02 13:17] LABS: Albumin Level 4.8 g/dl (3.5-5.0); Chloride 92 mmol/L (98-107); Potassium 4.1 mmoL/L (3.5-5.1); Sodium 137 mmol/L (136-145)
[2024-09-02 13:19] LABS: Blood Urea Nitrogen 52 mg/dl (9-20); Creatinine Clearance Estimated 58 mL/min (50-200); Estimated Glomerular Filt Rate 36 ml/min (>60); GFR (African American) 43 ML/MIN (>60)
[2024-09-02 13:20] LABS: Alanine Aminotransferase 30 U/L (12-78); Albumin/Globulin Ratio 1.5 (1.1-1.8); Alkaline Phosphatase 69 U/L (38-126); Anion Gap 15.1 mEq/L (5-15); Aspartate Amino Transferase 31 U/L (17-59); Calcium 9.6 mg/dl (8.4-10.2); Carbon Dioxide 34 mmol/L (22.0-30.0); Globulin 3.1 g/dL (1.3-3.2); Glucose 154 mg/dl (74-100); Lipase 27 U/L (23-300); Total Protein,Serum 7.9 g/dl (6.3-8.2)
[2024-09-02] MEDS: SODIUM CHLORIDE 0.9% 10ML SYR (RAD ONLY) 10 ML IV (13:33)
[2024-09-02] MEDS: IOPAMIDOL-370 (76%);100ML BOTTLE 75 ML IV (13:33)
[2024-09-02] MEDS: LACTATED RINGERS 1000ML 1,000 ML 999 ML IV (13:39)
[2024-09-02 14:21] LABS: Lactic Acid 1.2 mmol/L (0.7-2.1)
[2024-09-02 14:23] VITALS: BP 122/66; PULSE 77; RESP 13; TEMP 36.7; O2SAT 95
--- NOTE | 2024-09-02 14:54 | PC.NURSE ---
paged General surgery at this time.
[2024-09-02] MEDS: METOCLOPRAMIDE HCL 10MG/2ML VIAL 10 MG IVP (15:00)
--- NOTE | 2024-09-02 15:26 | P.HP_ITS ---
History of Present Illness *Admission Date: 09/02/24 *Reason for visit:: nausea and vomiting *History of present illness: 63-year-old male who presented to the ER with 2 days of nausea and vomiting. States he has had worsening distention and feeling like his stomach is more bloated. Had a very large bowel movement yesterday with no relief or benefit to his discomfort. History of significant abdominal pathology including prior bowel obstructions, prior colectomy, chronic pain, hypertension, tobacco use disorder. Denies any blood in his vomit. No fever or chills. No syncope. Stable on room air. Denies any bowel movement today. Workup in the ER concerning for small bowel obstruction with transition point. Medicine and surgery consulted for admission and further management. Prior to admission, patient declined having NG placed. Says he lost his sense of smell previously from an NG and does not want to go through that again. On arrival to the floor, patient went to the bathroom and states that he passed a little gas and was able to urinate independently for the first time today. Appears quite distended in his abdomen on evaluation. Family at bedside. [facility] Disclaimer: The information contained in this section may have been updated after the patient was seen, as this information can be updated by other users. Medical History (Updated 09/02/24 @ 18:06 by Jeff Boone MD) DDD (degenerative disc disease) HTN (hypertension) Back Pain Surgical History H/O colectomy H/O right knee surgery Family History Other No significant family history Social History Smoking Status: Current every day smoker tobacco type: cigarettes packs per day: 1 second hand exposure: No alcohol intake: never substance use type: denies use current occupational status: employed Travel in the last 8 weeks: None household members: family housing: house Other Medical History Have you received the Flu Vaccine for this season: No Have you received the Pneumonia Vaccine: No Review of Systems Review of Systems Review of systems (narrative): 14 point review of systems performed, pertinent positives and negatives as per HPI Meds Home Medications and Allergies Home Medications ?Medication ?Instructions ?Recorded ?Confirmed ?Type gabapentin 800 mg tablet 800 mg PO TID 07/05/21 09/02/24 History oxycodone 10 mg tablet 10 mg PO BID 07/05/21 09/02/24 History morphine 15 mg tablet,extended 15 mg PO DAILY 09/26/21 09/02/24 History release lisinopril 10 mg tablet 10 mg PO DAILY #100 tabs 08/19/24 09/02/24 Rx baclofen 10 mg tablet 10 mg PO BIDP PRN Mild Pain (Scale 09/02/24 09/02/24 History Score 1-4) mupirocin 2 % topical ointment 1 applic topical BID 09/02/24 09/02/24 History naproxen 500 mg tablet 500 mg PO BID 09/02/24 09/02/24 History trazodone 150 mg tablet 300 mg PO HS 09/02/24 09/02/24 History New Prescriptions to Start Prescriptions: Allergies Allergy/AdvReac Type Severity Reaction Status Date / Time No Known Allergies Allergy Verified 08/12/24 14:36 Exam Data for Last 24 hours Vital signs and Labs for Last 24 Hours: Temp Pulse Resp BP Pulse Ox O2 Del Method 98.0 F 77 13 122/66 95 Room Air 09/02/24 14:23 09/02/24 14:23 09/02/24 14:23 09/02/24 14:23 09/02/24 14:23 09/02/24 14:23 Laboratory Results - last 24 hr 09/02/24 12:33: WBC 9.2, RBC 6.01, Hgb 17.4, Hct 51.6, MCV 85.9, MCH 29.0, MCHC 33.8, RDW 15.4, Plt Count 274, MPV 7.6, Neut % (Auto) 80.5 H, Lymph % (Auto) 9.1 L, [place] % (Auto) 9.1, Eos % (Auto) 0.7, Baso % (Auto) 0.7, Neut # (Auto) 7.4, Lymph # (Auto) 0.8, [place] # (Auto) 0.8, Eos # (Auto) 0.1, Baso # (Auto) 0.1, Sodium 137, Potassium 4.1, Chloride 92 L, Carbon Dioxide 34 H, Anion Gap 15.1 H, BUN 52 H, Creatinine 1.90 H, Estimated Creat Clear 58, Estimated GFR 36 L, Est GFR ( Amer) 43 L, Glucose 154 H, Calcium 9.6, Total Bilirubin 1.0, AST 31, ALT 30, Alkaline Phosphatase 69, Total Protein 7.9 D, Albumin 4.8, Globulin 3.1, Albumin/Globulin Ratio 1.5, Lipase 27 09/02/24 13:35: Lactate 1.2 I & O for Last 24 hours: Intake & Output 08/30/24 08/31/24 09/01/24 09/02/24 23:59 23:59 23:59 23:59 Weight 104.326 kg Constitutional Constitutional: mild distress, average body habitus, chronically ill appearing and cooperative *Routine HEENT Exam Head: Present normocephalic Eye: Present EOMI and PERRL ENT: Present mucous membranes moist *Routine Neck Exam Neck: Present supple; Absent lymphadenopathy *Routine Respiratory Exam Respiratory: Present CTA bilaterally; Absent rhonchi, wheezes or crackles *Routine Cardiovascular Exam Cardiovascular: Present RRR *Routine Abdominal Exam Abdominal: Present soft, tenderness, distended and surgical scars (Well-healed midline abdominal scar); Absent normoactive bowel sounds (Hypoactive bowel sound), rebound or guarding *Routine Rectal Exam Rectal:: deferred *Routine Genitalia Exam Genitalia:: deferred *Routine Extremities Exam Extremities: Absent cyanosis, clubbing or edema *Routine Skin Exam Skin: Present warm; Absent rash *Routine Neurological Exam Neurological: Present alert, oriented X3 and moving all extremities; Absent altered mental status Assessment and Plan *Assessment and plan (1) Bowel obstruction: Problem Comment: Suspect chronic partial obstruction at anastomosis with acute exacerbation. Status: Acute Qualifiers: Intestinal obstruction extent: partial Intestinal obstruction type: other intestinal obstruction Qualified Code(s): K56.690 - Other partial intestinal obstruction Category: Medical Code(s): K56.609 - Unspecified intestinal obstruction, unspecified as to partial versus complete obstruction (2) TANYA (acute kidney injury): Status: Acute Category: Medical Code(s): N17.9 - Acute kidney failure, unspecified (3) DDD (degenerative disc disease), lumbar: Status: Acute Category: Medical Code(s): M51.36 - Other intervertebral disc degeneration, lumbar region (4) Chronic pain: Status: Acute Qualifiers: Chronic pain type: other chronic pain Qualified Code(s): G89.29 - Other chronic pain Category: Medical Code(s): G89.29 - Other chronic pain (5) Opioid use disorder: Status: Acute Category: Medical Code(s): F11.90 - Opioid use, unspecified, uncomplicated Plan 63-year-old male with extensive history of surgeries on his abdomen, presents with small bowel obstruction. Discussed case with ER physician, request admission for serial exams and further treatment if necessary. I agreed to admit for further management. Surgery consulted. N.p.o. at this time, resting bowels. Passed gas on arrival to the floor, will initiate bisacodyl suppository. Continue n.p.o. status. Problems addressed as follows Small bowel obstruction History of abdominal surgeries -Per my review of CT, has transition point and small intestines with dilation of several loops. -Continue NPO. -As he had a small amount of flatus after arriving to the floor, will initiate bisacodyl suppository once to try and stimulate bowels. Did have bowel movement last night. Deals with constipation secondary to his opiates -Surgery consulted, appreciate their recommendations. Serial exams at this time. Patient declined NG tube. - White count normal at 9.2, hemoglobin 17.4. Repeat CBC, CMP, magnesium ordered for the morning. Prerenal TANYA - BUN 52, creatinine 1.9. Consistent with prerenal TANYA. Potassium normal at 4.1. Received fluids in the ER. Monitor for improvement with his labs in the morning. Gentle hydration with LR overnight at 100 cc an hour Chronic opioid use disorder Chronic pain disorder Degenerative disc disease -Continue extended release morphine 15 mg nightly. Decrease oxycodone to 5 mg twice daily as needed for severe breakthrough pain. Complicates his bowel function. Discussed risks and benefits of continuing medications without inducing withdrawal by complete cessation -Can you home gabapentin 800 mg 3 times a day -High risk for toxicity, monitor for side effects and sedation -Continue home baclofen 10 mg twice daily as needed for pain and muscle spasm Tylenol 650 mg as needed every 6 hours for pain and headache Trazodone 300 mg nightly for sleep
--- NOTE | 2024-09-02 15:44 | HMH.PHAINT1 ---
Pharmacy Intervention Comments: MEDICATION RECONCILIATION COMPLETED ON PATIENT USING EXTERNAL FILL HISTORY FROM PHARMACY. -CARLITOS FRANK, GHADAD
[2024-09-02 15:46] VITALS: BP 145/84; PULSE 107; O2SAT 97
--- NOTE | 2024-09-02 15:48 | PC.NURSE ---
report called to Poncho HUNTLEY
[2024-09-02 16:00] VITALS: BP 145/84; PULSE 128; RESP 20; TEMP 36.8; O2SAT 95; BMI 29.7
--- NOTE | 2024-09-02 16:01 | PC.NURSE ---
arrived by w/c from ED
[2024-09-02 16:02] VITALS: BP 145/84; PULSE 76; RESP 20; TEMP 36.8; O2SAT 95
--- NOTE | 2024-09-02 16:12 | EXP.SURG.CON ---
History of Present Illness *Admission Date: 09/02/24 *Reason for visit:: Small bowel obstruction *History of present illness: This is a 63-year-old gentleman seen in consultation from the primary service for evaluation of possible small bowel obstruction. He presented to the emergency department for evaluation of abdominal distention and nausea/vomiting. Please see HPI and medical decision making forwarded below. The patient reports a bowel movement yesterday and states that he just passed flatus a little bit ago . Forwarded from emergency department evaluation: HPI narrative: This patient is a 63-year-old male with a history of prior bowel obstructions with prior colectomy, chronic pain, hypertension, and tobacco use presenting to the emergency department for evaluation with concern for abdominal pain, bloating, distention, nausea, and vomiting. Patient states that 2 days ago, he started having distention, feeling like someone had pumped his abdomen full of air. He states that he then developed nausea and vomiting which is nonbloody nonbilious. He notes that he had a bowel movement yesterday, that was small and not necessarily normal for him. Today, he has not had any bowel movements or pass gas. He notes intractable nausea and vomiting and is overall just feeling bad. Abdominal pain is generalized. Medical Decision Narrative: In summary, this patient is a 63-year-old male presenting to the Emergency Department for evaluation of generalized abdominal pain, nausea, and vomiting. Differential diagnoses considered include but are not limited to bowel obstruction, colitis, gastroenteritis, constipation, pancreatitis. Ruling out the most morbid conditions drove assessment. It should be noted patient's history includes tobacco dependence, hypertension, chronic pain which may or may not be at goal therapy. This complicates all aspects of care by increasing patient's risk for morbidity. I reviewed patient's past medical records and noted previous PCP evaluations for chronic pain. On exam, the patient is diaphoretic and actively vomiting. He has abdominal distention with generalized tenderness but no rebound or guarding. Workup included CBC, CMP, lipase, lactic acid, and CT abdomen pelvis with IV contrast. Patient was given a bolus of IV fluid as well as IV Zofran. I independently interpreted the scan prior to the radiologist read and noted concern for bowel obstruction without evidence of perforation. Please see their read for final interpretation. Labs were obtained that demonstrated TANYA with a creatinine up to 1.9 from 1.2. I paged general surgery to initiate consultation for small bowel obstruction with plan to admit the patient. I had an interactive discussion with Dr. Horne with general surgery who advised that he felt comfortable following the patient here given lack of significant comorbidities. I had an interactive discussion with the patient and advised that we could do an NG tube placement for symptomatic management, however he states that he had had that in the past and adamantly refuses. Will reassess need. In the meantime, he was given IV Reglan for continued nausea. I had an interactive discussion with the hospitalist who admitted the patient in stable condition for further evaluation and management. PFSH PFSH Disclaimer: The information contained in this section may have been updated after the patient was seen, as this information can be updated by other users. Medical History Back Pain Social History Smoking Status: Former smoker tobacco type: cigarettes packs per day: 1 second hand exposure: No alcohol intake: never substance use type: denies use current occupational status: employed Travel in the last 8 weeks: None household members: family housing: house Meds Home Medications and Allergies Home Medications ?Medication ?Instructions ?Recorded ?Confirmed ?Type gabapentin 800 mg tablet 800 mg PO TID 07/05/21 09/02/24 History oxycodone 10 mg tablet 10 mg PO BID 07/05/21 09/02/24 History morphine 15 mg tablet,extended 15 mg PO DAILY 09/26/21 09/02/24 History release lisinopril 10 mg tablet 10 mg PO DAILY #100 tabs 08/19/24 09/02/24 Rx baclofen 10 mg tablet 10 mg PO BIDP PRN Mild Pain (Scale 10/23/24 10/23/24 History Score 1-4) mupirocin 2 % topical ointment 1 applic topical BID 09/02/24 09/02/24 History naproxen 500 mg tablet 500 mg PO BID 09/02/24 09/02/24 History trazodone 150 mg tablet 300 mg PO HS 09/02/24 09/02/24 History New Prescriptions to Start Prescriptions: Allergies Allergy/AdvReac Type Severity Reaction Status Date / Time No Known Allergies Allergy Verified 08/12/24 14:36 Exam (Inpt) Vital signs and Labs for Last 24 Hours: Temp Pulse Resp BP Pulse Ox O2 Del Method 98.2 F 76 20 145/84 H 97 Room Air 09/02/24 16:02 09/02/24 16:02 09/02/24 16:02 09/02/24 16:02 09/02/24 15:46 09/02/24 16:02 Laboratory Results - last 24 hr 09/02/24 12:33: WBC 9.2, RBC 6.01, Hgb 17.4, Hct 51.6, MCV 85.9, MCH 29.0, MCHC 33.8, RDW 15.4, Plt Count 274, MPV 7.6, Neut % (Auto) 80.5 H, Lymph % (Auto) 9.1 L, [place] % (Auto) 9.1, Eos % (Auto) 0.7, Baso % (Auto) 0.7, Neut # (Auto) 7.4, Lymph # (Auto) 0.8, [place] # (Auto) 0.8, Eos # (Auto) 0.1, Baso # (Auto) 0.1, Sodium 137, Potassium 4.1, Chloride 92 L, Carbon Dioxide 34 H, Anion Gap 15.1 H, BUN 52 H, Creatinine 1.90 H, Estimated Creat Clear 58, Estimated GFR 36 L, Est GFR ( Amer) 43 L, Glucose 154 H, Calcium 9.6, Total Bilirubin 1.0, AST 31, ALT 30, Alkaline Phosphatase 69, Total Protein 7.9 D, Albumin 4.8, Globulin 3.1, Albumin/Globulin Ratio 1.5, Lipase 27 09/02/24 13:35: Lactate 1.2 I & O for Labs for Last 24 Hours: Intake & Output 08/31/24 09/01/24 09/02/24 09/03/24 11:59 11:59 11:59 11:59 Weight 230 lb Constitutional: no acute distress Respiratory: Absent respiratory distress Cardiac: Absent Tachycardia GI: Present soft, distention and tenderness (Mild global tenderness to deep palpation); Absent guarding Results Labs 09/02/24 12:33 09/02/24 12:33 Labs: Laboratory Results - last 24 hr 09/02/24 12:33: WBC 9.2, RBC 6.01, Hgb 17.4, Hct 51.6, MCV 85.9, MCH 29.0, MCHC 33.8, RDW 15.4, Plt Count 274, MPV 7.6, Neut % (Auto) 80.5 H, Lymph % (Auto) 9.1 L, [place] % (Auto) 9.1, Eos % (Auto) 0.7, Baso % (Auto) 0.7, Neut # (Auto) 7.4, Lymph # (Auto) 0.8, [place] # (Auto) 0.8, Eos # (Auto) 0.1, Baso # (Auto) 0.1, Sodium 137, Potassium 4.1, Chloride 92 L, Carbon Dioxide 34 H, Anion Gap 15.1 H, BUN 52 H, Creatinine 1.90 H, Estimated Creat Clear 58, Estimated GFR 36 L, Est GFR ( Amer) 43 L, Glucose 154 H, Calcium 9.6, Total Bilirubin 1.0, AST 31, ALT 30, Alkaline Phosphatase 69, Total Protein 7.9 D, Albumin 4.8, Globulin 3.1, Albumin/Globulin Ratio 1.5, Lipase 27 09/02/24 13:35: Lactate 1.[address] scan - abdomen: report reviewed and image reviewed CT scan - pelvis: report reviewed and image reviewed Additional studies: CT FINDINGS (truncated): : Stomach and bowel: Multiple dilated small bowel loops are present. Suspected transition point in the right lower quadrant at site of surgical goldy (image 73 series 3, image 25 series 1001). Gas and stool are present in large bowel. IMPRESSION: Partial small bowel obstruction. Suspected transition point in the right lower quadrant adjacent to surgical glody. Assessment and Plan *Assessment and plan (1) Bowel obstruction: Problem Comment: Suspect chronic partial obstruction at anastomosis with acute exacerbation. Status: Acute Qualifiers: Intestinal obstruction type: other intestinal obstruction Intestinal obstruction extent: partial Qualified Code(s): K56.690 - Other partial intestinal obstruction Category: Medical Code(s): K56.609 - Unspecified intestinal obstruction, unspecified as to partial versus complete obstruction Plan: The patient does not have it evidence of complete obstruction or evidence of peritonitis. No need for emergent exploration. Most likely, the patient has a chronic partial obstruction secondary to anastomosis with acute exacerbation. He reports bowel movement yesterday and states that he has continued to pass flatus. He refuses nasogastric decompression. NPO status IV fluids Serial abdominal exams Flat/upright films in AM (possible formal small bowel follow-through)
[2024-09-02 16:50] LABS: HIV (1&2) Antibody Rapid NONREACTIVE (NONREACTIVE)
[2024-09-02] MEDS: ACETAMINOPHEN 325MG TAB 650 MG PO (17:58)
[2024-09-02] MEDS: BISACODYL 10MG SUPP 10 MG RC (18:13)
--- NOTE | 2024-09-02 18:17 | PC.NURSE ---
new admit today for sbo. bisacodyl supp admin upon arrival to floor. no bm but pt reports passing flatus
--- OUTSIDE RECORDS SUMMARY | 2024-09-02 19:17 | XMS_ITS ---
Author Organization Unknown ALLERGIES AND ADVERSE REACTIONS No information ASSESSMENT No information CHIEF COMPLAINT No information MEDICATIONS No information OBJECTIVE DATA No information PHYSICAL EXAMINATION No information TREATMENT PLAN Planned Care Start Date Provider Encounter for Check-up [phone] [facility] PROBLEMS No information RESULTS No information REVIEW OF SYSTEMS No information SUBJECTIVE DATA No information VITAL SIGNS No information
[2024-09-02 20:00] VITALS: BP 112/77; PULSE 117; RESP 18; TEMP 36.9; O2SAT 93
[2024-09-02] MEDS: GABAPENTIN 800MG TABLET 800 MG PO (20:43)
[2024-09-02] MEDS: MORPHINE 15MG EXTENDED RELEASE TAB 15 MG PO (20:43)
[2024-09-02] MEDS: PATIENT'S OWN HOME MEDICATION (Trazodone 150 mg tablet) 300 EACH PO (20:44)
[2024-09-03] VITALS: BP 86/49; PULSE 114; RESP 18; TEMP 37.6; O2SAT 92
[2024-09-03 04:00] VITALS: BP 126/83; PULSE 114; RESP 16; TEMP 36.7; O2SAT 96
--- NOTE | 2024-09-03 06:00 | XR_ITS ---
PROCEDURE INFORMATION: Exam: XR Complete Acute Abdomen Series Including Chest Exam date and time: 09/03/2024 6:58 AM Age: 63 years old Clinical indication: Abdominal pain; Additional info: Partial sbo TECHNIQUE: Imaging protocol: Radiologic exam. Complete acute abdomen series, including 2 or more views of the abdomen and a single view chest. COMPARISON: CT ABDOMEN PELVIS W CON 09/02/2024 1:31 PM FINDINGS: Lungs: Low lung volumes with bronchovascular crowding and mild bibasilar subsegmental atelectasis. Pleural spaces: No pneumothorax or pleural effusion. Heart/Mediastinum: Cardiomediastinal silhouette is unremarkable for technique. Gastrointestinal tract: See Intraperitoneal space finding. Intraperitoneal space: No appreciable pneumoperitoneum. Multiple dilated small bowel loops are present. Gas and stool project in large bowel. Surgical goldy in the right hemiabdomen. No organomegaly, mass, or abnormal calcification. Bones/joints: No acute osseous or soft tissue abnormality. Soft tissues: See Bones/joints finding. IMPRESSION: 1. Low lung volumes with bronchovascular crowding and mild bibasilar subsegmental atelectasis. 2. Partial small bowel obstruction.
--- NOTE | 2024-09-03 06:10 | PC.NURSE ---
Pt A&OX4 and has tolerated room air. Lung sounds diminished and bowel sounds hypoactive. Pt has had 2 large BM this shift. Pt stated feeling much better after. He has ambulated to the bathroom independently as needed. Currently asleep with call light within reach.
--- NOTE | 2024-09-03 06:46 | EXP.SURG.PN ---
Subjective Patient reports: no new complaints, feels better, flatus and bowel movement Exam Data for Last 24 hours Vital signs and Labs for Last 24 Hours: Temp Pulse Resp BP Pulse Ox O2 Del Method 98.1 F 114 H 16 126/83 96 Room Air 09/03/24 04:00 09/03/24 04:00 09/03/24 04:00 09/03/24 04:00 09/03/24 04:00 09/03/24 05:00 Laboratory Results - last 24 hr 09/02/24 12:33: WBC 9.2, RBC 6.01, Hgb 17.4, Hct 51.6, MCV 85.9, MCH 29.0, MCHC 33.8, RDW 15.4, Plt Count 274, MPV 7.6, Neut % (Auto) 80.5 H, Lymph % (Auto) 9.1 L, [place] % (Auto) 9.1, Eos % (Auto) 0.7, Baso % (Auto) 0.7, Neut # (Auto) 7.4, Lymph # (Auto) 0.8, [place] # (Auto) 0.8, Eos # (Auto) 0.1, Baso # (Auto) 0.1, Sodium 137, Potassium 4.1, Chloride 92 L, Carbon Dioxide 34 H, Anion Gap 15.1 H, BUN 52 H, Creatinine 1.90 H, Estimated Creat Clear 58, Estimated GFR 36 L, Est GFR ( Amer) 43 L, Glucose 154 H, Calcium 9.6, Total Bilirubin 1.0, AST 31, ALT 30, Alkaline Phosphatase 69, Total Protein 7.9 D, Albumin 4.8, Globulin 3.1, Albumin/Globulin Ratio 1.5, Lipase 27, HIV 1&2 Antibody Rapid Nonreactive 09/02/24 13:35: Lactate 1.2 I & O for Last 24 hours: Intake & Output 08/31/24 09/01/24 09/02/24 09/03/24 11:59 11:59 11:59 11:59 Intake Total 0 / 0 Output Total 300 / 300 Balance -300 / -300 Weight 234 lb 6.4 oz Constitutional Constitutional: no acute distress *Routine Respiratory Exam Respiratory: Absent respiratory distress *Routine Abdominal Exam Abdominal: Present soft Progress Note: A&P Assessment and plan (1) Bowel obstruction: Problem details: Suspect chronic partial obstruction at anastomosis with acute exacerbation. Status: Acute Assessment and plan: No evidence of symptomatic obstruction currently as the patient has had multiple bowel movement since admission. His abdomen remains soft. Slowly advance diet as per primary service Recommend carbonation avoidance for now (2) TANYA (acute kidney injury): Status: Acute (3) DDD (degenerative disc disease), lumbar: Status: Acute (4) Chronic pain: Status: Acute (5) Opioid use disorder: Status: Acute
[2024-09-03 07:06] LABS: Albumin Level 3.8 g/dl (3.5-5.0); Chloride 95 mmol/L (98-107); Potassium 3.2 mmoL/L (3.5-5.1); Sodium 135 mmol/L (136-145)
[2024-09-03 07:08] LABS: Anion Gap 10.2 mEq/L (5-15); Blood Urea Nitrogen 56 mg/dl (9-20); Carbon Dioxide 33 mmol/L (22.0-30.0); Creatinine Clearance Estimated 66 mL/min (50-200); Estimated Glomerular Filt Rate 41 ml/min (>60); GFR (African American) 49 ML/MIN (>60)
[2024-09-03 07:09] LABS: Alanine Aminotransferase 26 U/L (12-78); Albumin/Globulin Ratio 1.5 (1.1-1.8); Alkaline Phosphatase 59 U/L (38-126); Aspartate Amino Transferase 30 U/L (17-59); Bilirubin,Total 0.7 mg/dl (0.2-1.3); Globulin 2.6 g/dL (1.3-3.2); Glucose 109 mg/dl (74-100); Magnesium 1.8 mg/dl (1.6-2.3); Total Protein,Serum 6.4 g/dl (6.3-8.2)
[2024-09-03 07:12] LABS: Basophils % 0.4 % (0.1-2.0); Eosinophils # 0.2 K/mm3 (0.0-0.4); Eosinophils % 3.4 % (0.1-12.0); Hematocrit 45.8 % (42.0-52.0); Lymphocytes # 0.9 K/mm3 (0.7-4.5); Lymphocytes % 14.8 % (10-50); Mean Corpuscular HGB Conc 32.9 g/dL (31.8-35.4); Mean Corpuscular Hemoglobin 28.5 pg (27.0-31.2); Mean Corpuscular Volume 86.7 fl (80-94); Mean Platelet Volume 7.7 fl (7.4-10.4); Monocytes # 0.6 K/mm3 (0.1-1.0); Monocytes % 10.7 % (1.7-9.3); Neutrophils # 4.1 K/mm3 (1.8-7.8); Neutrophils % 70.7 % (37.0-80.0); Platelet Count 202 K/mm3 (142-424); Red Blood Count 5.28 M/mm3 (4.60-6.20); Red Cell Distribution Width 15.3 % (11.5-17.5); White Blood Count 5.8 K/mm3 (4.8-10.8)
[2024-09-03 07:16] LABS: Hemoglobin 15.1 g/dL (14.1-18.0)
[2024-09-03 08:00] VITALS: BP 94/59; PULSE 110; RESP 20; TEMP 36.6; O2SAT 91
[2024-09-03] MEDS: LACTATED RINGERS 1000ML 1,000 ML 125 ML IV ×2 (08:02→17:41)
[2024-09-03] MEDS: LISINOPRIL 10MG TABLET 10 MG PO (08:03)
[2024-09-03] MEDS: GABAPENTIN 800MG TABLET 800 MG PO ×3 (08:03→20:00)
[2024-09-03] MEDS: KCl 10mEq/100ml 100 ML 100 MEQ IV ×2 (08:03→09:06)
[2024-09-03 09:32] LABS: HCV Ab Non Reactive (Non Reactive)
[2024-09-03 11:58] VITALS: BP 125/75; PULSE 87; RESP 22; TEMP 36.8; O2SAT 93
[2024-09-03] MEDS: ACETAMINOPHEN 325MG TAB 650 MG PO (12:24)
[2024-09-03] MEDS: SENNOSIDES 8.6MG/DOCUSATE 50MG TABLET 1 TAB PO ×2 (12:24→20:00)
[2024-09-03 14:34] LABS: Anion Gap 8.8 mEq/L (5-15); Blood Urea Nitrogen 52 mg/dl (9-20); Calcium 8.6 mg/dl (8.4-10.2); Carbon Dioxide 36 mmol/L (22.0-30.0); Chloride 95 mmol/L (98-107); Creatinine Clearance Estimated 80 mL/min (50-200); Estimated Glomerular Filt Rate 51 ml/min (>60); GFR (African American) 62 ML/MIN (>60); Glucose 120 mg/dl (74-100); Potassium 3.8 mmoL/L (3.5-5.1); Sodium 136 mmol/L (136-145)
--- NOTE | 2024-09-03 15:01 | EXP.ACUTE.PN ---
Subjective *Date: 09/03/24 *Time: 16:58 Interval history: Feeling much better this morning. Had 2 bowel movements overnight. Decided to trial advancement of diet with full liquids. Afebrile. Stable on room air. Passing gas. Kidney function still abnormal this morning. Medical Exam Vital signs and Labs for Last 24 Hours: Vital Signs Temp Pulse Pulse Resp BP BP Pulse Ox 09/03/24 11:58 98.3 F 87 22 125/75 93 L 09/03/24 11:00 09/03/24 09:00 09/03/24 08:00 09/03/24 08:00 97.8 F 110 H 20 94/59 L 91 L 09/03/24 06:52 09/03/24 05:00 09/03/24 04:00 98.1 F 114 H 16 126/83 96 09/03/24 03:00 09/03/24 01:00 09/03/24 00:00 99.7 F H 114 H 18 86/49 L 92 L 09/02/24 23:00 09/02/24 21:00 09/02/24 20:00 09/02/24 20:00 98.4 F 117 H 18 112/77 93 L 09/02/24 18:18 09/02/24 17:00 09/02/24 16:02 98.2 F 76 20 145/84 H 09/02/24 16:00 98.2 F 128 H 20 145/84 H 95 09/02/24 15:46 107 H 145/84 H 97 O2 Del Method 09/03/24 11:58 Room Air 09/03/24 11:00 Room Air 09/03/24 09:00 Room Air 09/03/24 08:00 Room Air 09/03/24 08:00 Room Air 09/03/24 06:52 Room Air 09/03/24 05:00 Room Air 09/03/24 04:00 Room Air 09/03/24 03:00 Room Air 09/03/24 01:00 Room Air 09/03/24 00:00 Room Air 09/02/24 23:00 Room Air 09/02/24 21:00 Room Air 09/02/24 20:00 Room Air 09/02/24 20:00 Room Air 09/02/24 18:18 Room Air 09/02/24 17:00 Room Air 09/02/24 16:02 Room Air 09/02/24 16:00 Room Air 09/02/24 15:46 Intake and Output 09/02/24 09/03/24 09/03/24 23:59 07:59 15:59 Intake Total 0 / 0 540 / 540 Output Total 300 / 300 Balance 0 / -300 -300 / 240 540 / 240 Intake: Intake, Oral Amount 0 / 0 540 / 540 Output: Output, Urine Amount 300 / 300 Other: Number of Unmeasured Voids 1 Number of Bowel Movements 2 Weight 105.233 kg 106.322 kg Patient Weight 09/03/24 23:59 Weight 106.322 kg Laboratory Results - last 24 hr 09/02/24 12:33: Hepatitis C Antibody Non reactive, HIV 1&2 Antibody Rapid Nonreactive 09/03/24 05:38: WBC 5.8 D, RBC 5.28, Hgb 15.1 D, Hct 45.8, MCV 86.7, MCH 28.5, MCHC 32.9, RDW 15.3, Plt Count 202 D, MPV 7.7, Neut % (Auto) 70.7, Lymph % (Auto) 14.8, [place] % (Auto) 10.7 H, Eos % (Auto) 3.4, Baso % (Auto) 0.4, Neut # (Auto) 4.1, Lymph # (Auto) 0.9, [place] # (Auto) 0.6, Eos # (Auto) 0.2, Baso # (Auto) 0.0, Sodium 135 L, Potassium 3.2 L D, Chloride 95 L, Carbon Dioxide 33 H, Anion Gap 10.2, BUN 56 H, Creatinine 1.70 H, Estimated Creat Clear 66, Estimated GFR 41 L, Est GFR ( Amer) 49 L, Glucose 109 H D, Calcium 8.0 L, Magnesium 1.8, Total Bilirubin 0.7, AST 30, ALT 26, Alkaline Phosphatase 59, Total Protein 6.4, Albumin 3.8 D, Globulin 2.6, Albumin/Globulin Ratio 1.5 09/03/24 14:13: Sodium 136, Potassium 3.8, Chloride 95 L, Carbon Dioxide 36 H, Anion Gap 8.8, BUN 52 H, Creatinine 1.40 H, Estimated Creat Clear 80, Estimated GFR 51 L, Est GFR ( Amer) 62 D, Glucose 120 H, Calcium 8.6 I & O for Labs for Last 24 Hours: Intake & Output 08/31/24 09/01/24 09/02/24 09/03/24 23:59 23:59 23:59 23:59 Intake Total 0 / 0 540 / 540 Output Total 300 / 300 Balance 0 / -300 240 / 240 Weight 105.233 kg 106.322 kg Constitutional: Present no acute distress, obese, chronically ill appearing and cooperative Head: Present atraumatic and normocephalic ENT: Present normal exam Respiratory: Present normal respiratory effort; Absent rhonchi, wheezes or crackles Cardiac: Present Reg Rate and Rhythm GI: Present soft, distention, tenderness (Diffuse, improved from yesterday) and normal bowel sounds; Absent guarding or rebound Extremities: Present normal inspection and full ROM Skin: Present intact; Absent erythema Neuro: Present Grossly Intact, alert, awake, oriented x 3 and moves all extremities Assessment and Plan *Assessment and plan (1) Bowel obstruction: Problem Comment: Suspect chronic partial obstruction at anastomosis with acute exacerbation. Status: Acute Qualifiers: Intestinal obstruction extent: partial Intestinal obstruction type: other intestinal obstruction Qualified Code(s): K56.690 - Other partial intestinal obstruction Category: Medical Code(s): K56.609 - Unspecified intestinal obstruction, unspecified as to partial versus complete obstruction (2) TANYA (acute kidney injury): Status: Acute Category: Medical Code(s): N17.9 - Acute kidney failure, unspecified (3) DDD (degenerative disc disease), lumbar: Status: Acute Category: Medical Code(s): M51.36 - Other intervertebral disc degeneration, lumbar region (4) Chronic pain: Status: Acute Qualifiers: Chronic pain type: other chronic pain Qualified Code(s): G89.29 - Other chronic pain Category: Medical Code(s): G89.29 - Other chronic pain (5) Opioid use disorder: Status: Acute Category: Medical Code(s): F11.90 - Opioid use, unspecified, uncomplicated Plan 63-year-old male with extensive history of surgeries on his abdomen, presents with small bowel obstruction. Discussed case with ER physician, request admission for serial exams and further treatment if necessary. I agreed to admit for further management. Surgery consulted. Continues to require patient management. Problems addressed as follows Small bowel obstruction History of abdominal surgeries -Discussed case with surgery, as the patient had bowel movements, will advance diet. Full liquids today. -If tolerates, and kidney function better tomorrow, anticipate discharge home. If intolerant, will reevaluate need for surgery. -Repeat bisacodyl suppository once to try and stimulate bowels. Concern for component of bowel dysfunction/ileus secondary to his opiates - White count normal at 5.8, hemoglobin 15. Repeat BMP this afternoon to monitor kidney function, repeat CBC, CMP, magnesium ordered for the morning. Prerenal TANYA - BUN 56, creatinine 1.7. Consistent with prerenal TANYA. Potassium low at 3.2. Will replace IV. Repeat labs this afternoon and in the morning tomorrow. Discontinue IV hydration as we are advancing diet Chronic opioid use disorder Chronic pain disorder Degenerative disc disease -Continue extended release morphine 15 mg nightly. Decrease oxycodone to 5 mg twice daily as needed for severe breakthrough pain. Complicates his bowel function. Discussed risks and benefits of continuing medications without inducing withdrawal by complete cessation -Can you home gabapentin 800 mg 3 times a day -High risk for toxicity, monitor for side effects and sedation -Continue home baclofen 10 mg twice daily as needed for pain and muscle spasm Tylenol 650 mg as needed every 6 hours for pain and headache Trazodone 300 mg nightly for sleep Full code Full liquid diet
[2024-09-03 16:00] VITALS: BP 136/75; PULSE 100; RESP 18; TEMP 37.1; O2SAT 93
[2024-09-03] MEDS: BISACODYL 10MG SUPP 10 MG RC (17:39)
--- NOTE | 2024-09-03 18:07 | PC.NURSE ---
NO ACUTE CHANGES. C/O NAUSEA ONCE POST MEAL TIME. BISACODYL SUPP ADMIN PER JAN. NO BM TODAY BUT PASSING FLATUS
[2024-09-03 20:00] VITALS: BP 122/82; PULSE 100; RESP 20; TEMP 36.4; O2SAT 93
[2024-09-03] MEDS: MORPHINE 15MG EXTENDED RELEASE TAB 15 MG PO (20:00)
[2024-09-03] MEDS: TRAZODONE 50MG TABLET 300 MG PO (20:00)
[2024-09-04] MEDS: LACTATED RINGERS 1000ML 1,000 ML 125 ML IV (02:33)
[2024-09-04 04:00] VITALS: BP 107/65; PULSE 110; RESP 16; TEMP 36.4; O2SAT 91; BMI 29.9
--- NOTE | 2024-09-04 05:12 | PC.NURSE ---
Pt A&OX4 and has tolerated room air. Bowel sounds active in all quadrants. Pt did have 1 large BM this shift. He has not complained of any nausea. Currently asleep, call light within reach.
--- NOTE | 2024-09-04 06:00 | XR_ITS ---
PROCEDURE INFORMATION: Exam: XR Complete Acute Abdomen Series Including Chest Exam date and time: 09/04/2024 7:10 AM Age: 63 years old Clinical indication: Abdominal pain; Additional info: Partial sbo TECHNIQUE: Imaging protocol: Radiologic exam. Complete acute abdomen series, including 2 or more views of the abdomen and a single view chest. COMPARISON: CR XR ACUTE ABDOMEN SERIES 09/03/2024 6:58 AM FINDINGS: Lungs: Stable lung aeration. No edema or consolidation. Pleural spaces: No significant pleural effusions. No pneumothorax. Heart/Mediastinum: Cardiomediastinal silhouette is stable. Gastrointestinal tract: Improving small bowel gaseous distension with a few residual gaseous distended small bowel loops. Increasing colonic gas. Multiple surgical clips within the abdomen on the right. Intraperitoneal space: No evidence of free air. Organs: Residual dilute contrast within the urinary bladder. Bones/joints: Bones are stable. Degenerative changes. Right hip arthroplasty. Soft tissues: Unremarkable. IMPRESSION: 1. Stable appearance of the chest. No acute cardiopulmonary process. 2. Improving small bowel gaseous distension.
[2024-09-04 06:51] LABS: Basophils % 0.2 % (0.1-2.0); Eosinophils # 0.2 K/mm3 (0.0-0.4); Eosinophils % 3.4 % (0.1-12.0); Hematocrit 43.4 % (42.0-52.0); Hemoglobin 14.3 g/dL (14.1-18.0); Lymphocytes # 1.1 K/mm3 (0.7-4.5); Lymphocytes % 15.7 % (10-50); Mean Corpuscular Hemoglobin 28.2 pg (27.0-31.2); Mean Corpuscular Volume 85.4 fl (80-94); Monocytes # 0.7 K/mm3 (0.1-1.0); Monocytes % 9.8 % (1.7-9.3); Neutrophils # 5.1 K/mm3 (1.8-7.8); Platelet Count 198 K/mm3 (142-424); Red Blood Count 5.08 M/mm3 (4.60-6.20); Red Cell Distribution Width 14.9 % (11.5-17.5); White Blood Count 7.3 K/mm3 (4.8-10.8)
[2024-09-04 07:03] LABS: Albumin Level 3.3 g/dl (3.5-5.0); Chloride 98 mmol/L (98-107); Potassium 3.3 mmoL/L (3.5-5.1); Sodium 133 mmol/L (136-145)
[2024-09-04 07:06] LABS: Alanine Aminotransferase 19 U/L (12-78); Albumin/Globulin Ratio 1.3 (1.1-1.8); Alkaline Phosphatase 61 U/L (38-126); Anion Gap 6.3 mEq/L (5-15); Aspartate Amino Transferase 29 U/L (17-59); Bilirubin,Total 0.7 mg/dl (0.2-1.3); Blood Urea Nitrogen 37 mg/dl (9-20); Carbon Dioxide 32 mmol/L (22.0-30.0); Creatinine Clearance Estimated 101 mL/min (50-200); Estimated Glomerular Filt Rate 67 ml/min (>60); GFR (African American) 82 ML/MIN (>60); Globulin 2.5 g/dL (1.3-3.2); Total Protein,Serum 5.8 g/dl (6.3-8.2)
[2024-09-04 07:07] LABS: Calcium 7.9 mg/dl (8.4-10.2); Glucose 87 mg/dl (74-100)
--- NOTE | 2024-09-04 07:23 | P.PN_ITS ---
Subjective *Date: 09/04/24 *Time: 07:23 Medical Exam Vital signs and Labs for Last 24 Hours: Vital Signs Temp Pulse Resp BP Pulse Ox O2 Del Method 09/04/24 06:50 Room Air 09/04/24 05:00 Room Air 09/04/24 04:00 97.5 F L 110 H 16 107/65 L 91 L Room Air 09/04/24 03:00 Room Air 09/04/24 01:00 Room Air 09/03/24 23:00 Room Air 09/03/24 21:00 Room Air 09/03/24 20:00 Room Air 09/03/24 20:00 97.6 F 100 H 20 122/82 93 L Room Air 09/03/24 18:01 Room Air 09/03/24 17:00 Room Air 09/03/24 16:00 98.7 F 100 H 18 136/75 93 L Room Air 09/03/24 14:58 Room Air 09/03/24 13:00 Room Air 09/03/24 11:58 98.3 F 87 22 125/75 93 L Room Air 09/03/24 11:00 Room Air 09/03/24 09:00 Room Air 09/03/24 08:00 Room Air 09/03/24 08:00 97.8 F 110 H 20 94/59 L 91 L Room Air Intake and Output 09/03/24 09/03/24 09/04/24 15:59 23:59 07:59 Intake Total 540 / 1175 335 / 1175 300 / 300 Output Total 0 / 300 300 / 300 Balance 540 / 875 335 / 875 0 / 0 Intake: Intake, Oral Amount 540 / 1175 335 / 1175 300 / 300 Output: Output, Urine Amount 0 / 300 300 / 300 Other: Number of Unmeasured Voids 1 Number of Bowel Movements 1 Weight 105.642 kg Patient Weight 09/04/24 23:59 Weight 105.642 kg Laboratory Results - last 24 hr 09/02/24 12:33: Hepatitis C Antibody Non reactive 09/03/24 05:38: Sodium 135 L, Potassium 3.2 L D, Chloride 95 L, Carbon Dioxide 33 H, Anion Gap 10.2, BUN 56 H, Creatinine 1.70 H, Estimated Creat Clear 66, Estimated GFR 41 L, Est GFR ( Amer) 49 L, Glucose 109 H D, Calcium 8.0 L, Magnesium 1.8, Total Bilirubin 0.7, AST 30, ALT 26, Alkaline Phosphatase 59, Total Protein 6.4, Albumin 3.8 D, Globulin 2.6, Albumin/Globulin Ratio 1.5 09/03/24 14:13: Sodium 136, Potassium 3.8, Chloride 95 L, Carbon Dioxide 36 H, Anion Gap 8.8, BUN 52 H, Creatinine 1.40 H, Estimated Creat Clear 80, Estimated GFR 51 L, Est GFR ( Amer) 62 D, Glucose 120 H, Calcium 8.6 09/04/24 05:49: WBC 7.3 D, RBC 5.08, Hgb 14.3, Hct 43.4, MCV 85.4, MCH 28.2, MCHC 33.0, RDW 14.9, Plt Count 198, MPV 8.0, Neut % (Auto) 71.0, Lymph % (Auto) 15.7, [place] % (Auto) 9.8 H, Eos % (Auto) 3.4, Baso % (Auto) 0.2, Neut # (Auto) 5.1, Lymph # (Auto) 1.1, [place] # (Auto) 0.7, Eos # (Auto) 0.2, Baso # (Auto) 0.0, Sodium 133 L, Potassium 3.3 L, Chloride 98, Carbon Dioxide 32 H, Anion Gap 6.3, BUN 37 H D, Creatinine 1.10 D, Estimated Creat Clear 101, Estimated GFR 67, Est GFR ( Amer) 82 D, Glucose 87 D, Calcium 7.9 L, Magnesium 2.0 D, Total Bilirubin 0.7, AST 29, ALT 19 D, Alkaline Phosphatase 61, Total Protein 5.8 L, Albumin 3.3 L D, Globulin 2.5, Albumin/Globulin Ratio 1.3 I & O for Labs for Last 24 Hours: Intake & Output 09/01/24 09/02/24 09/03/24 09/04/24 23:59 23:59 23:59 23:59 Intake Total 0 / 0 875 / 1175 300 / 300 Output Total 300 / 300 300 / 300 Balance 0 / -300 575 / 875 0 / 0 Weight 105.233 kg 106.322 kg 105.642 kg The patient's infection will respond to the chosen ABx?: Yes Is the patient receiving the right drug, dose, and route?: Yes Could a more targeted ABx be ordered?: No
--- NOTE | 2024-09-04 07:59 | EXP.DC.SUM ---
General Admission date:: 09/02/24 Discharge date: 09/04/24 HPI HPI HPI: 63-year-old male who presented to the ER with 2 days of nausea and vomiting. States he has had worsening distention and feeling like his stomach is more bloated. Had a very large bowel movement yesterday with no relief or benefit to his discomfort. History of significant abdominal pathology including prior bowel obstructions, prior colectomy, chronic pain, hypertension, tobacco use disorder. Denies any blood in his vomit. No fever or chills. No syncope. Stable on room air. Denies any bowel movement today. Workup in the ER concerning for small bowel obstruction with transition point. Medicine and surgery consulted for admission and further management. Prior to admission, patient declined having NG placed. Says he lost his sense of smell previously from an NG and does not want to go through that again. On arrival to the floor, patient went to the bathroom and states that he passed a little gas and was able to urinate independently for the first time today. Appears quite distended in his abdomen on evaluation. Family at bedside. Exam Data for Last 24 hours Vital signs and Labs for Last 24 Hours: Temp Pulse Resp BP Pulse Ox O2 Del Method 97.5 F L 110 H 16 107/65 L 91 L Room Air 09/04/24 04:00 09/04/24 04:00 09/04/24 04:00 09/04/24 04:00 09/04/24 04:00 09/04/24 06:50 Laboratory Results - last 24 hr 09/02/24 12:33: Hepatitis C Antibody Non reactive 09/03/24 14:13: Sodium 136, Potassium 3.8, Chloride 95 L, Carbon Dioxide 36 H, Anion Gap 8.8, BUN 52 H, Creatinine 1.40 H, Estimated Creat Clear 80, Estimated GFR 51 L, Est GFR ( Amer) 62 D, Glucose 120 H, Calcium 8.6 09/04/24 05:49: WBC 7.3 D, RBC 5.08, Hgb 14.3, Hct 43.4, MCV 85.4, MCH 28.2, MCHC 33.0, RDW 14.9, Plt Count 198, MPV 8.0, Neut % (Auto) 71.0, Lymph % (Auto) 15.7, [place] % (Auto) 9.8 H, Eos % (Auto) 3.4, Baso % (Auto) 0.2, Neut # (Auto) 5.1, Lymph # (Auto) 1.1, [place] # (Auto) 0.7, Eos # (Auto) 0.2, Baso # (Auto) 0.0, Sodium 133 L, Potassium 3.3 L, Chloride 98, Carbon Dioxide 32 H, Anion Gap 6.3, BUN 37 H D, Creatinine 1.10 D, Estimated Creat Clear 101, Estimated GFR 67, Est GFR ( Amer) 82 D, Glucose 87 D, Calcium 7.9 L, Magnesium 2.0 D, Total Bilirubin 0.7, AST 29, ALT 19 D, Alkaline Phosphatase 61, Total Protein 5.8 L, Albumin 3.3 L D, Globulin 2.5, Albumin/Globulin Ratio 1.3 I & O for Last 24 hours: Intake & Output 09/01/24 09/02/24 09/03/24 09/04/24 23:59 23:59 23:59 23:59 Intake Total 0 / 0 875 / 1175 300 / 300 Output Total 300 / 300 300 / 300 Balance 0 / -300 575 / 875 0 / 0 Weight 105.233 kg 106.322 kg 105.642 kg Results Data Completed and Pending Labs on day of discharge: Labs from last 24 hours 09/04/24 09/03/24 09/02/24 05:49 14:13 12:33 WBC 7.3 D RBC 5.08 Hgb 14.3 Hct 43.4 MCV 85.4 MCH 28.2 MCHC 33.0 RDW 14.9 Plt Count 198 MPV 8.0 Neut % (Auto) 71.0 Lymph % (Auto) 15.7 [place] % (Auto) 9.8 H Eos % (Auto) 3.4 Baso % (Auto) 0.2 Neut # (Auto) 5.1 Lymph # (Auto) 1.1 [place] # (Auto) 0.7 Eos # (Auto) 0.2 Baso # (Auto) 0.0 Sodium 133 L 136 Potassium 3.3 L 3.8 Chloride 98 95 L Carbon Dioxide 32 H 36 H Anion Gap 6.3 8.8 BUN 37 H D 52 H Creatinine 1.10 D 1.40 H Estimated Creat Clear 101 80 Estimated GFR 67 51 L Est GFR ( Amer) 82 D 62 D Glucose 87 D 120 H Calcium 7.9 L 8.6 Magnesium 2.0 D Total Bilirubin 0.7 AST 29 ALT 19 D Alkaline Phosphatase 61 Total Protein 5.8 L Albumin 3.3 L D Globulin 2.5 Albumin/Globulin Ratio 1.3 Hepatitis C Antibody Non reactive DS: Diagnosis Discharge Diagnosis (1) Bowel obstruction: Status: Acute Code(s): K56.609 - Unspecified intestinal obstruction, unspecified as to partial versus complete obstruction Qualifiers: Intestinal obstruction extent: partial Intestinal obstruction type: other intestinal obstruction Qualified Code(s): K56.690 - Other partial intestinal obstruction Problem details: Suspect chronic partial obstruction at anastomosis with acute exacerbation. (2) TANYA (acute kidney injury): Status: Acute Code(s): N17.9 - Acute kidney failure, unspecified (3) DDD (degenerative disc disease), lumbar: Status: Acute Code(s): M51.36 - Other intervertebral disc degeneration, lumbar region (4) Chronic pain: Status: Acute Code(s): G89.29 - Other chronic pain Qualifiers: Chronic pain type: other chronic pain Qualified Code(s): G89.29 - Other chronic pain (5) Opioid use disorder: Status: Acute Code(s): F11.90 - Opioid use, unspecified, uncomplicated Meds Home Medications and Allergies Home Medications ?Medication ?Instructions ?Recorded ?Confirmed ?Type gabapentin 800 mg tablet 800 mg PO TID 07/05/21 09/02/24 History oxycodone 10 mg tablet 10 mg PO BID 07/05/21 09/02/24 History morphine 15 mg tablet,extended 15 mg PO DAILY 09/26/21 09/02/24 History release lisinopril 10 mg tablet 10 mg PO DAILY #100 tabs 08/19/24 09/02/24 Rx baclofen 10 mg tablet 10 mg PO BIDP PRN Mild Pain (Scale 09/02/24 09/02/24 History Score 1-4) mupirocin 2 % topical ointment 1 applic topical BID 09/02/24 09/02/24 History naproxen 500 mg tablet 500 mg PO BID 09/02/24 09/02/24 History trazodone 150 mg tablet 300 mg PO HS 09/02/24 09/02/24 History New Prescriptions to Start Prescriptions: Allergies Allergy/AdvReac Type Severity Reaction Status Date / Time No Known Allergies Allergy Verified 08/12/24 14:36 Discharge Plan Disposition Condition: Good Follow up Plan Prescriptions/Medication Reconciliation: No Action gabapentin 800 mg tablet 800 mg PO TID oxycodone 10 mg tablet 10 mg PO BID morphine 15 mg tablet extended release 15 mg PO DAILY lisinopril 10 mg tablet 10 mg PO DAILY Qty: 100 3RF baclofen 10 mg tablet 10 mg PO BIDP PRN (Reason: Mild Pain (Scale Score 1-4)) trazodone 150 mg tablet 300 mg PO HS mupirocin 2 % ointment 1 applic topical BID naproxen 500 mg tablet 500 mg PO BID Patient Discharge Instructions Patient Instructions: DI for Small Bowel Obstruction Print Language: [place]ian Providers Primary Care Provider: Derrick Pitts Admit Provider: Jeff Boone Attending Provider: Jeff Boone
[2024-09-04 08:00] VITALS: BP 118/80; PULSE 113; RESP 16; TEMP 36.9; O2SAT 93
[2024-09-04] MEDS: CEPACOL THROAT LOZENGES 16 LOZ/BOX 1 EACH MM (08:18)
--- NOTE | 2024-09-04 08:27 | EXP.SURG.PN ---
Subjective Patient reports: feels better, flatus and bowel movement Exam Data for Last 24 hours Vital signs and Labs for Last 24 Hours: Temp Pulse Resp BP Pulse Ox O2 Del Method 98.4 F 113 H 16 118/80 93 L Room Air 09/04/24 08:00 09/04/24 08:00 09/04/24 08:00 09/04/24 08:00 09/04/24 08:00 09/04/24 08:00 Laboratory Results - last 24 hr 09/02/24 12:33: Hepatitis C Antibody Non reactive 09/03/24 14:13: Sodium 136, Potassium 3.8, Chloride 95 L, Carbon Dioxide 36 H, Anion Gap 8.8, BUN 52 H, Creatinine 1.40 H, Estimated Creat Clear 80, Estimated GFR 51 L, Est GFR ( Amer) 62 D, Glucose 120 H, Calcium 8.6 09/04/24 05:49: WBC 7.3 D, RBC 5.08, Hgb 14.3, Hct 43.4, MCV 85.4, MCH 28.2, MCHC 33.0, RDW 14.9, Plt Count 198, MPV 8.0, Neut % (Auto) 71.0, Lymph % (Auto) 15.7, [place] % (Auto) 9.8 H, Eos % (Auto) 3.4, Baso % (Auto) 0.2, Neut # (Auto) 5.1, Lymph # (Auto) 1.1, [place] # (Auto) 0.7, Eos # (Auto) 0.2, Baso # (Auto) 0.0, Sodium 133 L, Potassium 3.3 L, Chloride 98, Carbon Dioxide 32 H, Anion Gap 6.3, BUN 37 H D, Creatinine 1.10 D, Estimated Creat Clear 101, Estimated GFR 67, Est GFR ( Amer) 82 D, Glucose 87 D, Calcium 7.9 L, Magnesium 2.0 D, Total Bilirubin 0.7, AST 29, ALT 19 D, Alkaline Phosphatase 61, Total Protein 5.8 L, Albumin 3.3 L D, Globulin 2.5, Albumin/Globulin Ratio 1.3 I & O for Last 24 hours: Intake & Output 09/01/24 09/02/24 09/03/24 09/04/24 11:59 11:59 11:59 11:59 Intake Total 0 / 0 1175 / 1175 Output Total 300 / 300 300 / 300 Balance -300 / -300 875 / 875 Weight 234 lb 6.4 oz 232 lb 14.4 oz Constitutional Constitutional: no acute distress *Routine Respiratory Exam Respiratory: Absent respiratory distress *Routine Abdominal Exam Abdominal: Present soft Progress Note: A&P Assessment and plan (1) Bowel obstruction: Problem details: Suspect chronic partial obstruction at anastomosis with acute exacerbation. Status: Acute Assessment and plan: Continues to show improvement. No evidence of symptomatic obstruction currently (bowel movement/flatus continue). His abdomen remains soft. Morning films with improved bowel gas pattern (radiology read pending). Continue overall management as per primary service
[2024-09-04] MEDS: LISINOPRIL 10MG TABLET 10 MG PO (08:41)
[2024-09-04] MEDS: SENNOSIDES 8.6MG/DOCUSATE 50MG TABLET 1 TAB PO (08:41)
[2024-09-04] MEDS: GABAPENTIN 800MG TABLET 800 MG PO (08:41)
--- NOTE | 2024-09-07 16:06 | SW/DCPLANNER ---
Hospital follow up phone call: patient stated that he is doing well at this time. Patient is aware of follow up appointments and was able to machine pecan picker his new medication. Patient did not have any further needs/questions at this time.
== END 2024-09-04 11:52 | disposition home or self-care (01) ==
LOC: ER 15:23 → 2ND 15:48
PROVIDERS: Admitting Provider Internal Medicine Adolescent Medicine; Emergency Provider Emergency Medicine; PCP Nurse Practitioner Family; Visit Provider Internal Medicine Adolescent Medicine
DX: K56.690 Other partial intestinal obstruction (principal); N17.9 Acute kidney failure, unspecified; F17.210 Nicotine dependence, cigarettes, uncomplicated; F11.90 Opioid use, unspecified, uncomplicated; G89.29 Other chronic pain; Z79.899 Other long term (current) drug therapy; M51.360 Other intervertebral disc degeneration, lumbar region with discogenic back pain only
CPT/HCPCS: 36415; 74021; 74177; 80048; 80053; 83605; 83690; 83735; 85025; 86803; 87389; 99285; G0378; J2405; J2765; J3480; J7120; Q9967

== ENCOUNTER 2024-12-16 08:30 | Outpatient (CLI) | payer MEDICARE, SELFPAY ==
[2024-12-16 19:24] LABS: Albumin Level 4.4 g/dl (3.5-5.0); Chloride 102 mmol/L (98-107); Potassium 4.3 mmoL/L (3.5-5.1); Sodium 140 mmol/L (136-145)
[2024-12-16 19:27] LABS: Alanine Aminotransferase 30 U/L (12-78); Albumin/Globulin Ratio 2.6 (1.1-1.8); Alkaline Phosphatase 82 U/L (38-126); Anion Gap 14.3 mEq/L (5-15); Aspartate Amino Transferase 26 U/L (17-59); Bilirubin,Total 0.2 mg/dl (0.2-1.3); Blood Urea Nitrogen 16 mg/dl (9-20); Calcium 8.9 mg/dl (8.4-10.2); Carbon Dioxide 28 mmol/L (22.0-30.0); Estimated Glomerular Filt Rate 75 ml/min (>60); GFR (African American) 91 ML/MIN (>60); Globulin 1.7 g/dL (1.3-3.2); Glucose 83 mg/dl (74-100); Total Protein,Serum 6.1 g/dl (6.3-8.2)
== END 2024-12-16 23:59 | disposition home or self-care (01) ==
LOC: LAB.DROPOF 12-18 08:30
PROVIDERS: PCP Internal Medicine; Visit Provider Internal Medicine
DX: I10 Essential (primary) hypertension (principal); M54.41 Lumbago with sciatica, right side; K59.03 Drug induced constipation; T40.2X5A Adverse effect of other opioids, initial encounter; F12.10 Cannabis abuse, uncomplicated; K56.690 Other partial intestinal obstruction; M47.816 Spondylosis without myelopathy or radiculopathy, lumbar region; Z72.0 Tobacco use
CPT/HCPCS: 80053

== ENCOUNTER 2024-12-24 15:07 | Outpatient (CLI) | payer MEDICARE, SELFPAY ==
--- NOTE | 2024-12-24 15:23 | CT_ITS ---
FINAL REPORT TECHNIQUE: Axial images were obtained from the lung apex to the mid abdomen by computed tomography. This study was performed with techniques to keep radiation doses as low as reasonably achievable (ALARA). Individualized dose reduction techniques using automated exposure control or adjustment of mA and/or kV according to the patient's size were employed. CLINICAL HISTORY: lung cancer screening Previous smoker, quit 3 years ago, previous 1ppd x 30 years FINDINGS: CHEST CT LOW DOSE CTDI vol (mGy): 2.90 DLP (mGy-cm): 102.38 There is no axillary adenopathy. There is no hilar or mediastinal adenopathy. The heart is normal in size. There is no pericardial or pleural effusion. Lung window images demonstrate no suspicious infiltrate or nodule. Limited images of the upper abdomen are unremarkable. IMPRESSION: Lung RADS category 1. Recommend 12 month follow-up low-dose chest CT. Reviewed, Interpreted and Dictated by Apolinar Batres MD Transcribed by Julianne Oropeza Authenticated and [facility]
== END 2024-12-24 23:59 | disposition home or self-care (01) ==
LOC: RAD 15:08
PROVIDERS: PCP Nurse Practitioner Family; Visit Provider Internal Medicine
DX: Z87.891 Personal history of nicotine dependence (principal)
CPT/HCPCS: 71271

== ENCOUNTER 2025-02-08 16:35 | Outpatient (CLI) | payer MEDICARE, SELFPAY ==
--- NOTE | 2025-02-08 | MR_ITS ---
PROCEDURE INFORMATION: Exam: MR Lumbar Spine Without Contrast Exam date and time: 02/08/2025 4:42 PM Age: 64 years old Clinical indication: Low back pain; Additional info: Chronic low back pain TECHNIQUE: Imaging protocol: Magnetic resonance imaging of the lumbar spine without contrast. COMPARISON: MR LUMBAR SPINE WO CON 11/29/2022 11:06 AM FINDINGS: Bones/joints: Mild exaggeration of the lumbar lordosis. 3 mm of grade 1 degenerative anterolisthesis of L4 on L5. No acute fracture seen. The AP spinal canal diameter is diminished on a developmental basis due to shortened pedicles. Edema in the right L4 and L5 pedicles extending to the articular facets likely inflammatory/degenerative present on basis of facet arthropathy. There is right L4-L5 periarticular soft tissue edema. Small bilateral facet joint effusions at this level, present to a greater extent on the right with extracanalicular synovial cysts. Similar facet joint inflammatory changes were present previously. Spinal cord: The conus medullaris ends normally. Disc desiccation from L1-L2 through L5-S1. No high-grade disc height loss. Mild multilevel spondylosis. L1-L2: Mild disc bulge and facet arthropathy. No significant stenoses. L2-L3: Mild disc bulge as well as [id number] facet arthropathy and ligamentum flavum buckling. Mild central spinal canal stenosis mostly on a developmental basis. No significant foraminal stenoses. L3-L4: Moderate diffuse disc bulge, facet arthropathy and ligamentum flavum buckling. Moderate central spinal canal and lateral recess stenoses. Mild bilateral neural foraminal stenoses. L4-L5: Mildly progressive central spinal canal stenosis due to marked diffuse disc bulge, facet arthropathy and ligamentum flavum buckling. Now complete CSF effacement between the cauda equina nerve roots (progressive severe central spinal canal stenosis). The lateral recesses are effaced. No significant foraminal stenoses. L5-S1: Mild disc bulge and marked facet arthropathy. The thecal sac is tapered by epidural fat. No evidence of S1 nerve root impingement. Mild bilateral neural foraminal stenoses. Soft tissues: See Bones/joints finding. The right kidney is absent. IMPRESSION: Mild progression of central spinal canal and lateral recess stenoses at L4-L5.
== END 2025-02-08 23:59 | disposition home or self-care (01) ==
LOC: RAD 16:35
PROVIDERS: PCP Internal Medicine; Visit Provider Orthopaedic Surgery
DX: M54.50 Low back pain, unspecified (principal)
CPT/HCPCS: 72148

== ENCOUNTER 2025-07-28 04:34 | Observation (INO) | payer MEDICARE, SELFPAY ==
[2025-07-28] VITALS (30 sets, daily range): BP systolic 75–133; BP diastolic 45–84; PULSE 52–95; RESP 13–20; TEMP 36.6–36.8; O2SAT 95–100; BMI 28.6
--- NOTE | 2025-07-28 04:35 | HMH.EDGENADL ---
Discharge Plan Disposition Patient Disposition: Home, Self-Care Clinical Impressions Clinical Impression: AMS (altered mental status), TANYA (acute kidney injury) Discharge ED Provider: Becka Leiva Adult HPI <Ricky Bailey MD - Last Filed: 07/28/25 07:29> General Chief complaint: Altered Mental Status Stated complaint: overdose Time Seen by Provider: 07/28/25 04:35 History of Present Illness HPI narrative: 64-year-old male with his surgery of hypertension, chronic back pain, presents for altered mental status. Patient was out of his meds for about a month and just got them back. He took his medications and then became unarousable. His was concerned and so called EMS. Patient took 2 of his 150 mg trazodone pills, also took his oxycodone and baclofen. On arrival patient is drowsy but arousable and answers questions. Patient denies taking any other substances that are not his medications. Denies any self-harm intent. Related Data Home Medications ?Medication ?Instructions ?Recorded ?Confirmed baclofen 10 mg tablet 10 mg PO BIDP PRN Mild Pain (Scale 09/02/24 07/28/25 Score 1-4) trazodone 150 mg tablet 300 mg PO HS 09/02/24 07/28/25 latanoprost 0.005 % eye drops 1 drp Eye-Both HS 07/28/25 07/28/25 morphine 15 mg tablet,extended 15 mg PO DAILY 07/28/25 07/28/25 release oxycodone 10 mg tablet 10 mg PO BIDP PRN Moderate Pain 07/28/25 07/28/25 (Scale Score 5-6) prednisolone acetate 1 % eye 1 drp Eye-Right BID 07/28/25 07/28/25 drops,suspension tamsulosin 0.4 mg capsule 0.4 mg PO DAILY 07/28/25 07/28/25 Previous Rx's ?Medication ?Instructions ?Recorded lisinopril 10 mg tablet 10 mg PO DAILY #100 tabs 12/16/24 Allergies Allergy/AdvReac Type Severity Reaction Status Date / Time No Known Allergies Allergy Verified 06/24/25 13:48 PFSH <Ricky Bailey MD - Last Filed: 07/28/25 07:29> [facility] Disclaimer: The information contained in this section may have been updated after the patient was seen, as this information can be updated by other users. Medical History Tobacco use Chronic pain Spinal stenosis Bowel obstruction TANYA (acute kidney injury) Marijuana abuse DDD (degenerative disc disease) HTN (hypertension) Back Pain Surgical History History of right hip replacement H/O colectomy H/O right knee surgery Family History Other No significant family history Social History Smoking Status: Never smoker second hand exposure: No alcohol intake: never substance use type: denies use current occupational status: employed Travel in the last 8 weeks?: None household members: family housing: house Other Medical History Have you received the Flu Vaccine for this season: No Have you received the Pneumonia Vaccine: No <Ricky Bailey MD - Last Filed: 07/28/25 07:29> ROS Obtained: Yes All systems reviewed & no additional complaints except as documented Physical Exam <Ricky Bailey MD - Last Filed: 07/28/25 07:29> General General appearance: alert and in no apparent distress Head Head exam: atraumatic and normocephalic Eye Eye exam: Present normal appearance, PERRL and EOMI ENT ENT exam: Present normal oropharynx and normal external ear exam Neck Neck exam: Present normal inspection and full ROM Chest Chest inspection: Present normal inspection and symmetric chest wall rise; Absent tenderness Respiratory Respiratory exam: Present normal lung sounds bilaterally; Absent respiratory distress Cardiovascular Cardiovascular exam: Present regular rate and normal rhythm Abdominal Exam Abdominal exam: Present soft; Absent distention, tenderness or guarding Extremities Exam Extremities exam: Present normal inspection; Absent edema or joint swelling Back Exam Back exam: Present normal inspection; Absent tenderness Neurological Exam Neurological exam: Present alert and oriented X3; Absent motor sensory deficit Psychiatric Psychiatric exam: Present normal affect and normal mood Skin Skin exam: Present warm, dry and normal color Lymphatic Lymphatic Findings: no adenopathy Medical Decision Making <Ricky Bailey MD - Last Filed: 07/28/25 07:29> Medical Records Medical records reviewed: Yes I reviewed the patient's medical records. Screening: Per USPSTF and CDC recommendations, given the prevalence of disease in our region, it is our hospital?s policy to screen for HIV and viral Hepatitis for all patients aged 18 and over and those with ongoing risk factors. Nikita Inquiry Pt receiving controlled substance: No Nikita was queried for this patient: No Vital Signs: 07/28/25 04:36 07/28/25 06:00 07/28/25 06:07 Temperature 98.1 F Temperature Source Oral Pulse Rate Pulse Rate [Right] 74 Respiratory Rate 20 17 17 Blood Pressure 85/48 L 89/47 L Blood Pressure [Right Arm] 96/64 L Blood Pressure Mean 55 53 Blood Pressure Mean [Right Arm] 74 Blood Pressure Source Blood Pressure Position 02 Sat by Pulse Oximetry 99 Oxygen Delivery Method Room Air Oxygen Flow Rate (LPM) 07/28/25 06:08 07/28/25 06:30 07/28/25 06:35 Temperature Temperature Source Pulse Rate 68 65 66 Pulse Rate [Right] Respiratory Rate 16 16 17 Blood Pressure 87/50 L 75/45 L 86/47 L Blood Pressure [Right Arm] Blood Pressure Mean Blood Pressure Mean [Right Arm] Blood Pressure Source Blood Pressure Position 02 Sat by Pulse Oximetry 96 96 95 Oxygen Delivery Method Nasal Cannula Oxygen Flow Rate (LPM) 2 07/28/25 07:00 07/28/25 07:05 07/28/25 07:30 Temperature Temperature Source Pulse Rate 74 72 65 Pulse Rate [Right] Respiratory Rate 14 18 16 Blood Pressure 83/56 L 117/61 91/51 L Blood Pressure [Right Arm] Blood Pressure Mean Blood Pressure Mean [Right Arm] Blood Pressure Source Blood Pressure Position 02 Sat by Pulse Oximetry 96 96 96 Oxygen Delivery Method Nasal Cannula Nasal Cannula Oxygen Flow Rate (LPM) 2 2 07/28/25 07:45 07/28/25 08:03 07/28/25 08:05 Temperature Temperature Source Pulse Rate 65 63 82 Pulse Rate [Right] Respiratory Rate 15 16 19 Blood Pressure 98/54 L Blood Pressure [Right Arm] Blood Pressure Mean Blood Pressure Mean [Right Arm] Blood Pressure Source Blood Pressure Position 02 Sat by Pulse Oximetry 99 99 100 Oxygen Delivery Method Oxygen Flow Rate (LPM) 07/28/25 08:30 07/28/25 08:40 07/28/25 08:50 Temperature Temperature Source Pulse Rate Pulse Rate [Right] Respiratory Rate 17 15 16 Blood Pressure 100/57 L 99/60 L 90/52 L Blood Pressure [Right Arm] Blood Pressure Mean Blood Pressure Mean [Right Arm] Blood Pressure Source Blood Pressure Position 02 Sat by Pulse Oximetry 98 98 Oxygen Delivery Method Nasal Cannula Nasal Cannula Oxygen Flow Rate (LPM) 2 2 07/28/25 09:12 07/28/25 09:21 07/28/25 09:30 Temperature Temperature Source Pulse Rate Pulse Rate [Right] Respiratory Rate 17 13 15 Blood Pressure 133/84 117/64 107/62 L Blood Pressure [Right Arm] Blood Pressure Mean Blood Pressure Mean [Right Arm] Blood Pressure Source Blood Pressure Position 02 Sat by Pulse Oximetry 98 98 98 Oxygen Delivery Method Nasal Cannula Nasal Cannula Nasal Cannula Oxygen Flow Rate (LPM) 2 2 2 07/28/25 09:40 07/28/25 09:43 07/28/25 09:50 Temperature Temperature Source Pulse Rate Pulse Rate [Right] Respiratory Rate 15 15 16 Blood Pressure 89/51 L 102/62 L 100/69 L Blood Pressure [Right Arm] Blood Pressure Mean Blood Pressure Mean [Right Arm] Blood Pressure Source Blood Pressure Position 02 Sat by Pulse Oximetry 98 98 98 Oxygen Delivery Method Nasal Cannula Nasal Cannula Nasal Cannula Oxygen Flow Rate (LPM) 2 2 2 07/28/25 10:00 07/28/25 10:10 07/28/25 10:20 Temperature Temperature Source Pulse Rate Pulse Rate [Right] Respiratory Rate 13 13 14 Blood Pressure 85/58 L 90/50 L 83/52 L Blood Pressure [Right Arm] Blood Pressure Mean Blood Pressure Mean [Right Arm] Blood Pressure Source Blood Pressure Position 02 Sat by Pulse Oximetry 97 97 96 Oxygen Delivery Method Nasal Cannula Nasal Cannula Nasal Cannula Oxygen Flow Rate (LPM) 2 2 2 07/28/25 10:25 07/28/25 10:30 07/28/25 10:40 Temperature Temperature Source Pulse Rate 81 52 L 83 Pulse Rate [Right] Respiratory Rate 14 18 15 Blood Pressure 105/63 L 118/71 123/74 Blood Pressure [Right Arm] Blood Pressure Mean Blood Pressure Mean [Right Arm] Blood Pressure Source Blood Pressure Position 02 Sat by Pulse Oximetry 96 98 97 Oxygen Delivery Method Nasal Cannula Nasal Cannula Nasal Cannula Oxygen Flow Rate (LPM) 2 2 2 07/28/25 12:34 Temperature 98.1 F Temperature Source Oral Pulse Rate 62 Pulse Rate [Right] Respiratory Rate 16 Blood Pressure 114/72 Blood Pressure [Right Arm] Blood Pressure Mean Blood Pressure Mean [Right Arm] Blood Pressure Source Automatic Cuff Blood Pressure Position Sitting 02 Sat by Pulse Oximetry Oxygen Delivery Method Room Air Oxygen Flow Rate (LPM) Lab Data Lab results reviewed: Yes I reviewed the patient's lab results. Lab Results 07/28/25 04:00: WBC 14.2 H, RBC 4.99, Hgb 14.2, Hct 43.3, MCV 86.8, MCH 28.5, MCHC 32.8, RDW 13.2, Plt Count 223, MPV 9.9, Neut % (Auto) 92.9 H, Lymph % (Auto) 2.5 L, [place] % (Auto) 3.6, Eos % (Auto) 0.1, Baso % (Auto) 0.3, Neut # (Auto) 13.2 H, Lymph # (Auto) 0.4 L, [place] # (Auto) 0.5, Eos # (Auto) 0.0, Baso # (Auto) 0.0, Total Counted 100, Neutrophils % (Manual) 91 H, Band Neutrophils % 6, Lymphocytes % (Manual) 3 L, Sodium 134 L, Potassium 4.3, Chloride 100, Carbon Dioxide 25, Anion Gap 13.3, BUN 26 H, Creatinine 2.80 H, Estimated Creat Clear 38, Estimated GFR 23 L, Est GFR ( Amer) 28 L, Glucose 140 H, Calcium 8.9, Total Bilirubin 1.0, AST 24, ALT 29, Alkaline Phosphatase 79, Total Protein 7.0, Albumin 4.2, Globulin 2.8, Albumin/Globulin Ratio 1.5, TSH 0.29 L, Salicylates 1.4 L, Acetaminophen < 10 L 07/28/25 04:00 07/28/25 04:00 Orders (Tests/Meds): ED MEDICATIONS Generic Name Dose Route Start Last Admin Trade Name Freq PRN Reason Stop Dose Admin Sodium Chloride 1,000 mls @ 125 mls/hr 07/28/25 11:15 Sod Chlor 0.9% 1000ml Bag IV 08/27/25 11:14 .Q8H CHRISTIANA Ondansetron HCl 4 mg 07/28/25 11:03 Ondansetron 4mg/2ml Vial IV 08/27/25 11:02 Q8HP PRN Nausea Discontinued Medications Generic Name Dose Route Start Last Admin Trade Name Miguelq PRN Reason Stop Dose Admin Sodium Chloride 1,000 mls @ 999 mls/hr 07/28/25 06:15 07/28/25 07:25 Sod Chlor 0.9% 1000ml Bag IV 07/28/25 07:15 Infused .Q1H1M CHRISTIANA Infusion Sodium Chloride 1,000 mls @ 999 mls/hr 07/28/25 08:48 07/28/25 11:58 Sod Chlor 0.9% 1000ml Bag IV 07/28/25 09:48 Infused .Q1H1M ONE Infusion ORDERS Category Date Time Status Portable CXR [XR chest portable] Stat Exams 07/28/25 11:02 Completed Acetaminophen Stat Lab 07/28/25 04:00 Completed Basic Metabolic Panel AMLAB Lab 07/29/25 06:00 Ordered CBC w/Auto Diff [Complete Blood Count Auto Diff] Stat Lab 07/28/25 04:00 Completed CMP [Comprehensive Metabolic Panel] Stat Lab 07/28/25 04:00 Completed Complete Blood Count Auto Diff AMLAB Lab 07/29/25 06:00 Ordered Magnesium AMLAB Lab 07/29/25 06:00 Ordered Salicylate Stat Lab 07/28/25 04:00 Completed TSH [Thyroid Stimulating Hormone] Routine Lab 07/28/25 04:00 Completed UDS [Drug Screen,Urine] Stat Lab 07/28/25 11:24 Completed Urinalysis and Microscopic Stat Lab 07/28/25 11:24 Completed Medical Decision Narrative: 64-year-old male with history of opiate use disorder, hyper tension, degenerative disc disease presents for altered mental status after taking his home trazodone, oxycodone, baclofen after he had not had his meds for a month. History was obtained via interactive discussion with patient, EMS, chart review. On arrival, patient is afebrile, hypertensive, satting appropriately, drowsy but arousable, moving all extremities spontaneously. Full physical exam performed and significant for no significant physical exam abnormalities Differential includes but is not limited to intoxication, withdrawal, overdose. Low concern for emergent pathology at this time, will obtain basic labs and allow patient to metabolize.. Patient was given 1 L IV fluid bolus for mild hypotension for symptomatic management and correction of underlying abnormalities. Workup initiated including CBC CMP Tylenol salicylate. On re-evaluation, patient remains quite drowsy, borderline hypotensive but improved after fluids. Laboratory workup independently interpreted by me and significant for TANYA with creatinine 2.8. Baseline creatinine closer to 1. Mild leukocytosis. At this time care was handed off to oncoming physician with plan for continued monitoring until patient wakes up. <Becka Cali, DO - Last Filed: 07/28/25 13:11> Vital Signs: 07/28/25 04:36 07/28/25 06:00 07/28/25 06:07 Temperature 98.1 F Temperature Source Oral Pulse Rate Pulse Rate [Right] 74 Respiratory Rate 20 17 17 Blood Pressure 85/48 L 89/47 L Blood Pressure [Right Arm] 96/64 L Blood Pressure Mean 55 53 Blood Pressure Mean [Right Arm] 74 Blood Pressure Source Blood Pressure Position 02 Sat by Pulse Oximetry 99 Oxygen Delivery Method Room Air Oxygen Flow Rate (LPM) 07/28/25 06:08 07/28/25 06:30 07/28/25 06:35 Temperature Temperature Source Pulse Rate 68 65 66 Pulse Rate [Right] Respiratory Rate 16 16 17 Blood Pressure 87/50 L 75/45 L 86/47 L Blood Pressure [Right Arm] Blood Pressure Mean Blood Pressure Mean [Right Arm] Blood Pressure Source Blood Pressure Position 02 Sat by Pulse Oximetry 96 96 95 Oxygen Delivery Method Nasal Cannula Oxygen Flow Rate (LPM) 2 07/28/25 07:00 07/28/25 07:05 07/28/25 07:30 Temperature Temperature Source Pulse Rate 74 72 65 Pulse Rate [Right] Respiratory Rate 14 18 16 Blood Pressure 83/56 L 117/61 91/51 L Blood Pressure [Right Arm] Blood Pressure Mean Blood Pressure Mean [Right Arm] Blood Pressure Source Blood Pressure Position 02 Sat by Pulse Oximetry 96 96 96 Oxygen Delivery Method Nasal Cannula Nasal Cannula Oxygen Flow Rate (LPM) 2 2 07/28/25 07:45 07/28/25 08:03 07/28/25 08:05 Temperature Temperature Source Pulse Rate 65 63 82 Pulse Rate [Right] Respiratory Rate 15 16 19 Blood Pressure 98/54 L Blood Pressure [Right Arm] Blood Pressure Mean Blood Pressure Mean [Right Arm] Blood Pressure Source Blood Pressure Position 02 Sat by Pulse Oximetry 99 99 100 Oxygen Delivery Method Oxygen Flow Rate (LPM) 07/28/25 08:30 07/28/25 08:40 07/28/25 08:50 Temperature Temperature Source Pulse Rate Pulse Rate [Right] Respiratory Rate 17 15 16 Blood Pressure 100/57 L 99/60 L 90/52 L Blood Pressure [Right Arm] Blood Pressure Mean Blood Pressure Mean [Right Arm] Blood Pressure Source Blood Pressure Position 02 Sat by Pulse Oximetry 98 98 Oxygen Delivery Method Nasal Cannula Nasal Cannula Oxygen Flow Rate (LPM) 2 2 07/28/25 09:12 07/28/25 09:21 07/28/25 09:30 Temperature Temperature Source Pulse Rate Pulse Rate [Right] Respiratory Rate 17 13 15 Blood Pressure 133/84 117/64 107/62 L Blood Pressure [Right Arm] Blood Pressure Mean Blood Pressure Mean [Right Arm] Blood Pressure Source Blood Pressure Position 02 Sat by Pulse Oximetry 98 98 98 Oxygen Delivery Method Nasal Cannula Nasal Cannula Nasal Cannula Oxygen Flow Rate (LPM) 2 2 2 07/28/25 09:40 07/28/25 09:43 07/28/25 09:50 Temperature Temperature Source Pulse Rate Pulse Rate [Right] Respiratory Rate 15 15 16 Blood Pressure 89/51 L 102/62 L 100/69 L Blood Pressure [Right Arm] Blood Pressure Mean Blood Pressure Mean [Right Arm] Blood Pressure Source Blood Pressure Position 02 Sat by Pulse Oximetry 98 98 98 Oxygen Delivery Method Nasal Cannula Nasal Cannula Nasal Cannula Oxygen Flow Rate (LPM) 2 2 2 07/28/25 10:00 07/28/25 10:10 07/28/25 10:20 Temperature Temperature Source Pulse Rate Pulse Rate [Right] Respiratory Rate 13 13 14 Blood Pressure 85/58 L 90/50 L 83/52 L Blood Pressure [Right Arm] Blood Pressure Mean Blood Pressure Mean [Right Arm] Blood Pressure Source Blood Pressure Position 02 Sat by Pulse Oximetry 97 97 96 Oxygen Delivery Method Nasal Cannula Nasal Cannula Nasal Cannula Oxygen Flow Rate (LPM) 2 2 2 07/28/25 10:25 07/28/25 10:30 07/28/25 10:40 Temperature Temperature Source Pulse Rate 81 52 L 83 Pulse Rate [Right] Respiratory Rate 14 18 15 Blood Pressure 105/63 L 118/71 123/74 Blood Pressure [Right Arm] Blood Pressure Mean Blood Pressure Mean [Right Arm] Blood Pressure Source Blood Pressure Position 02 Sat by Pulse Oximetry 96 98 97 Oxygen Delivery Method Nasal Cannula Nasal Cannula Nasal Cannula Oxygen Flow Rate (LPM) 2 2 2 07/28/25 12:34 Temperature 98.1 F Temperature Source Oral Pulse Rate 62 Pulse Rate [Right] Respiratory Rate 16 Blood Pressure 114/72 Blood Pressure [Right Arm] Blood Pressure Mean Blood Pressure Mean [Right Arm] Blood Pressure Source Automatic Cuff Blood Pressure Position Sitting 02 Sat by Pulse Oximetry Oxygen Delivery Method Room Air Oxygen Flow Rate (LPM) Lab Data Lab Results 07/28/25 04:00: WBC 14.2 H, RBC 4.99, Hgb 14.2, Hct 43.3, MCV 86.8, MCH 28.5, MCHC 32.8, RDW 13.2, Plt Count 223, MPV 9.9, Neut % (Auto) 92.9 H, Lymph % (Auto) 2.5 L, [place] % (Auto) 3.6, Eos % (Auto) 0.1, Baso % (Auto) 0.3, Neut # (Auto) 13.2 H, Lymph # (Auto) 0.4 L, [place] # (Auto) 0.5, Eos # (Auto) 0.0, Baso # (Auto) 0.0, Total Counted 100, Neutrophils % (Manual) 91 H, Band Neutrophils % 6, Lymphocytes % (Manual) 3 L, Sodium 134 L, Potassium 4.3, Chloride 100, Carbon Dioxide 25, Anion Gap 13.3, BUN 26 H, Creatinine 2.80 H, Estimated Creat Clear 38, Estimated GFR 23 L, Est GFR ( Amer) 28 L, Glucose 140 H, Calcium 8.9, Total Bilirubin 1.0, AST 24, ALT 29, Alkaline Phosphatase 79, Total Protein 7.0, Albumin 4.2, Globulin 2.8, Albumin/Globulin Ratio 1.5, TSH 0.29 L, Salicylates 1.4 L, Acetaminophen < 10 L Orders (Tests/Meds): ED MEDICATIONS Generic Name Dose Route Start Last Admin Trade Name Freq PRN Reason Stop Dose Admin Sodium Chloride 1,000 mls @ 125 mls/hr 07/28/25 11:15 Sod Chlor 0.9% 1000ml Bag IV 08/27/25 11:14 .Q8H CHRISTIANA Ondansetron HCl 4 mg 07/28/25 11:03 Ondansetron 4mg/2ml Vial IV 08/27/25 11:02 Q8HP PRN Nausea Discontinued Medications Generic Name Dose Route Start Last Admin Trade Name Freq PRN Reason Stop Dose Admin Sodium Chloride 1,000 mls @ 999 mls/hr 07/28/25 06:15 07/28/25 07:25 Sod Chlor 0.9% 1000ml Bag IV 07/28/25 07:15 Infused .Q1H1M CHRISTIANA Infusion Sodium Chloride 1,000 mls @ 999 mls/hr 07/28/25 08:48 07/28/25 11:58 Sod Chlor 0.9% 1000ml Bag IV 07/28/25 09:48 Infused .Q1H1M ONE Infusion ORDERS Category Date Time Status Portable CXR [XR chest portable] Stat Exams 07/28/25 11:02 Completed Acetaminophen Stat Lab 07/28/25 04:00 Completed Basic Metabolic Panel AMLAB Lab 07/29/25 06:00 Ordered CBC w/Auto Diff [Complete Blood Count Auto Diff] Stat Lab 07/28/25 04:00 Completed CMP [Comprehensive Metabolic Panel] Stat Lab 07/28/25 04:00 Completed Complete Blood Count Auto Diff AMLAB Lab 07/29/25 06:00 Ordered Magnesium AMLAB Lab 07/29/25 06:00 Ordered Salicylate Stat Lab 07/28/25 04:00 Completed TSH [Thyroid Stimulating Hormone] Routine Lab 07/28/25 04:00 Completed UDS [Drug Screen,Urine] Stat Lab 07/28/25 11:24 Completed Urinalysis and Microscopic Stat Lab 07/28/25 11:24 Completed Medical Decision Narrative: 64-year-old male with history of opiate use disorder, hyper tension, degenerative disc disease presents for altered mental status after taking his home trazodone, oxycodone, baclofen after he had not had his meds for a month. History was obtained via interactive discussion with patient, EMS, chart review. On arrival, patient is afebrile, hypertensive, satting appropriately, drowsy but arousable, moving all extremities spontaneously. Full physical exam performed and significant for no significant physical exam abnormalities Differential includes but is not limited to intoxication, withdrawal, overdose. Low concern for emergent pathology at this time, will obtain basic labs and allow patient to metabolize.. Patient was given 1 L IV fluid bolus for mild hypotension for symptomatic management and correction of underlying abnormalities. Workup initiated including CBC CMP Tylenol salicylate. On re-evaluation, patient remains quite drowsy, borderline hypotensive but improved after fluids. Laboratory workup independently interpreted by me and significant for TANYA with creatinine 2.8. Baseline creatinine closer to 1. Mild leukocytosis. At this time care was handed off to oncoming physician with plan for continued monitoring until patient wakes up. I, Dr. Leiva, assumed care of this patient from Dr. Bailey with tentative plan of care to allow patient to metabolize to freedom and then discuss admission for TANYA. Additional liter of crystalloid ordered as patient remains fluid responsive with borderline hypotension. EKG obtained which shows normal sinus rhythm at a rate of 79. KS 201, QRS 114, QTc 410. Normal axis. No acute ST elevations or signs of acute subendocardial transmural ischemia. After discussion with poison control, patient will at least require 10 hours of observation for trazodone dose. Considering his altered mental status, borderline hypotension, and TANYA, he was admitted to the hospital medicine service. Procedures <Ricky Bailey MD - Last Filed: 07/28/25 07:29> Risk/Benefits of Procedure(s) Were Explained: Yes Critical Care <Ricky Bailey MD - Last Filed: 07/28/25 07:29> Critical Care Time Critical Care Time: No
[2025-07-28 04:45] LABS: Hematocrit 43.3 % (42.0-52.0); Hemoglobin 14.2 g/dL (14.1-18.0); Immature Granulocytes % 0.6 %; Mean Corpuscular HGB Conc 32.8 g/dL (31.8-35.4); Mean Corpuscular Hemoglobin 28.5 pg (27.0-31.2); Mean Corpuscular Volume 86.8 fl (80-94); Nucleated Red Blood Cells % 0 %; Platelet Count 223 K/mm3 (142-424); Red Blood Count 4.99 M/mm3 (4.60-6.20); Red Cell Distribution Width-SD 41.1 fL; White Blood Count 14.2 K/mm3 (4.8-10.8)
[2025-07-28 04:54] LABS: Alanine Aminotransferase 29 U/L (12-78); Albumin Level 4.2 g/dl (3.5-5.0); Albumin/Globulin Ratio 1.5 (1.1-1.8); Alkaline Phosphatase 79 U/L (38-126); Anion Gap 13.3 mEq/L (5-15); Aspartate Amino Transferase 24 U/L (17-59); Bilirubin,Total 1.0 mg/dl (0.2-1.3); Blood Urea Nitrogen 26 mg/dl (9-20); Calcium 8.9 mg/dl (8.4-10.2); Carbon Dioxide 25 mmol/L (22.0-30.0); Chloride 100 mmol/L (98-107); Creatinine Clearance Estimated 38 mL/min (50-200); Creatinine,Serum 2.80 mg/dl (0.66-1.25); Estimated Glomerular Filt Rate 23 ml/min (>60); GFR (African American) 28 ML/MIN (>60); Globulin 2.8 g/dL (1.3-3.2); Glucose 140 mg/dl (74-100); Potassium 4.3 mmoL/L (3.5-5.1); Salicylate 1.4 mg/dL (2.0-20.0); Sodium 134 mmol/L (136-145); Total Protein,Serum 7.0 g/dl (6.3-8.2)
[2025-07-28 05:05] LABS: Acetaminophen < 10 ug/ml (10-30)
--- OUTSIDE RECORDS SUMMARY | 2025-07-28 05:16 | XMS_ITS | Clinical Summary ---
Author Organization Healthcare Address [address] [place] [address] Care Team Providers Care Camp Guard Name Role Phone Unavailable Primary Care Provider Unavailabl e Social History Tobacco Use Types Packs/Day Years Used Date Smoking Tobacco: Never Assessed Sex and Gender Information Value Date Recorded Sex Assigned at Not on file Legal Sex Male 6:07 PM EDT Gender Identity Not on file Sexual Orientation Not on file Plan of Treatment Upcoming Encounters Date Type Department Care Team (Late st Contact Info) Description 09/02/2025 1:15 PM EDT Office Visit [facility] [address] [place] [address] Judy Blanchard MD [address] [place] [address] Health Maintenance Due Date Last Done Comments [facility]-Depression Screening 1959 [facility]-Hepatitis C Screening 1959 [facility]-Medicare Annual Wellness (AWV) 1960 [facility]-Infant/Child/Adol SDOH Screenings 1959 [facility]- SDOH Screenings 1977 [facility]-Adult SDOH Screenings 1977 CT Colonography 2004 Colonoscopy 2004 FIT-DNA 2004 FIT 2004 FOBT 2004 Sigmoidoscopy 2004 [facility]-Colorectal Cancer Screening 2004 [facility]-Pneumococcal Vaccine: 50 + Years (1 of 1 - PCV) 2009 [facility]-Zoster Vaccines (1 of 2) 2009 [facility]-DTaP,Tdap,and Td Vaccine s (2 - Td or Tdap) 07/05/2025 07/05/2015, 12/11/2000 [id number] Vaccine (2024- season) 2025 10/06/2021, 01/19/2021 [facility]-Influenza Vaccine (#1) 07/12/202509/15, 10/01/2019 [facility]-RSV Vaccine: 60+ Years o r (1 - 1-dose 75+ series) 2034 HPV Vaccines Aged Out No longer eligi ble based on patient's age to complete this topic [facility]-HIB Vaccines Aged Out No longer e ligible based on patient's age to complete this topic [facility]-Hepatitis A Vaccines Aged Out No longer eligible based on patient's age to complete this topic [facility]-IPV Vaccines Aged Out No longer e ligible based on patient's age to complete this topic [facility]-Rotavirus Vaccines Aged Out No lo nger eligible based on patient's age to complete this topic Insurance [employer]
[2025-07-28 05:22] LABS: Total Cells Counted 100
[2025-07-28] MEDS: 0.9 % SODIUM CHLORIDE 1000ML 1,000 ML 999 ML IV ×2 (06:15→08:58)
--- NOTE | 2025-07-28 10:33 | PC.NURSE ---
spoke to poison control they stated only recommendation was to get an EKG and check for QT prolongation, expect patietn to be drousy for 8-10 hours
--- NOTE | 2025-07-28 10:38 | ECG_ITS ---
APPROVED REPORT Exam: Resting ECG HR:79 bpm ECG Measurements Heart Rate 79 AXES WI 201 P 61 QRSd 114 QRS 3 QT 376 T 44 QTc 410 Conclusion SINUS RHYTHM MODERATE INTRAVENTRICULAR CONDUCTION DELAY [110+ ms QRS DURATION] BORDERLINE ECG UNCONFIRMED REPORT Electronically signed by : TRENTON PEREZ, 07/29/2025 06:40:15
--- NOTE | 2025-07-28 10:59 | PC.NURSE ---
provider speaking with dr norton
--- NOTE | 2025-07-28 11:01 | PC.NURSE ---
called house for bed
--- NOTE | 2025-07-28 11:02 | XR_ITS ---
FINAL REPORT TECHNIQUE: Single view chest CLINICAL HISTORY: elevated WBC, o2 requirement FINDINGS: A single view of the chest was obtained. The heart and mediastinum are within normal limits. The lungs are clear. There is no pneumothorax. IMPRESSION: No acute cardiopulmonary process. Reviewed, Interpreted and Dictated by Apolinar Batres MD Transcribed by Maxine Toscano Authenticated and [facility]
--- NOTE | 2025-07-28 11:04 | HMH.PHAINT1 ---
Pharmacy Intervention Comments: MEDICATION RECONCILIATION COMPLETED ON PATIENT USING EXTERNAL FILL HISTORY FROM PHARMACY AND EDGAR REPORT. -CARLITOS FRANK, GHADAD
[2025-07-28 11:29] LABS: Microscopic, Urine URINE MICROSCOPIC (MICROSCOPIC)
[2025-07-28 11:35] LABS: Bilirubin,Urine Negative (Negative); Color,Urine YELLOW (Yellow); Glucose,Urine (UA) Negative (Negative); Ketones,Urine Negative (Negative); Leukocyte Esterase,Urine Negative (Negative); PH,Urine 6.0 (5.0-8.5); Protein,Urine Negative (Negative); Specific Gravity, Urine 1.010 (1.005-1.030); Urobilinogen,Urine 0.2 EU/dl (0.2)
[2025-07-28 11:48] LABS: Amphetamine/Metha Screen,Urine Negative ng/ml (<1000); Benzodiazepines Screen,Urine Negative ng/ml (<200)
[2025-07-28 11:49] LABS: Barbiturates Screen,Urine Negative ng/ml (<200)
[2025-07-28 11:50] LABS: Methadone Screen,Urine Negative ng/ml (<300)
[2025-07-28 11:52] LABS: Thyroid Stimulating Hormone 0.29 uIU/mL (0.465-4.68)
[2025-07-28 11:52] LABS: Opiate Screen,Urine Positive ng/ml (<300); Phencyclidine Screen,Urine Negative ng/ml (<25)
[2025-07-28 11:57] LABS: WBC,Urine Occasional #/hpf (0-3)
[2025-07-28 11:58] LABS: Amorphous Sediment,Urine 1+ /lpf
[2025-07-28 12:56] LABS: Free T4 (Free Thyroxine) 1.32 ng/dl (0.78-2.19)
--- NOTE | 2025-07-28 13:16 | P.HP_ITS ---
<Statement entered by Jeff Boone MD - 07/28/25 15:50> Rounded on patient after nurse practitioner. Personally examined and interviewed patient. Agree with exam findings and care plan as documented. History of Present Illness *Admission Date: 07/28/25 *Reason for visit:: drug overdose *History of present illness: Mr. Cook is a 64-year-old male who presented to the emergency department today via EMS due to altered mental status. Patient's at bedside states he recently refilled his prescription for his trazodone which he took before bed, this morning he was unarousable and she called EMS. Patient takes oxycodone 10 mg twice daily as needed, morphine 15 mg daily, baclofen 10 mg twice daily as needed, and trazodone 300 mg at bedtime. He has a primary medical history of chronic pain, tobacco use, DDD, bowel obstruction with colon resection, hypertension. Workup in the ER was significant for acute kidney injury, creatinine 2.8, toxic metabolic encephalopathy, GCS of 8 on arrival to the ED, patient was also borderline hypotensive.The ED contacted poison control who recommended at least 10 hours of observation time post trazodone intake. Patient was given 2 L crystalloid bolus at which time his hypotension improved. [facility] Disclaimer: The information contained in this section may have been updated after the patient was seen, as this information can be updated by other users. Medical History Tobacco use Chronic pain Spinal stenosis Bowel obstruction TANYA (acute kidney injury) Marijuana abuse DDD (degenerative disc disease) HTN (hypertension) Back Pain Surgical History History of right hip replacement H/O colectomy H/O right knee surgery Family History Other No significant family history Social History Smoking Status: Never smoker second hand exposure: No alcohol intake: never substance use type: denies use current occupational status: employed Travel in the last 8 weeks?: None household members: family housing: house Other Medical History Have you received the Flu Vaccine for this season: No Have you received the Pneumonia Vaccine: No Review of Systems Constitutional Constitutional: Reports weakness *Cardiovascular Cardiovascular: Denies chest pain, Denies dyspnea, Denies leg edema, Denies leg ulcers and Denies palpitations *Respiratory Respiratory: Denies chest congestion, Denies cough and Denies dyspnea *Gastrointestinal Gastrointestinal: Denies abdominal pain, Denies nausea and Denies vomiting *Genitourinary Genitourinary: Denies difficulty urinating and Denies oliguria *Musculoskeletal Musculoskeletal: Reports back pain, Reports limited range of motion and Reports stiffness *Neurologic Neurologic: Reports weakness Endocrine Endocrine: Denies palpitations Meds Home Medications and Allergies Home Medications ?Medication ?Instructions ?Recorded ?Confirmed ?Type baclofen 10 mg tablet 10 mg PO BIDP PRN Mild Pain (Scale 09/02/24 07/28/25 Histo ry Score 1-4) trazodone 150 mg tablet 300 mg PO HS 09/02/24 History lisinopril 10 mg tablet 10 mg PO DAILY #100 tabs 04/0407/28/25 Rx latanoprost 0.005 % eye drops 1 drp Eye-Both HS 07/28/25 History morphine 15 mg tablet,extended 15 mg PO DAILY 07/28/25 07/28/25 History release oxycodone 10 mg tablet 10 mg PO BIDP PRN Moderate P ain 07/28/25 07/28/25 History (Scale Score 5-6) prednisolone acetate 1 % eye 1 drp Eye-Right BID 07/2807/28/25 History drops,suspension tamsulosin 0.4 mg capsule 0.4 mg PO DAILY 07/28/25 History New Prescriptions to Start Prescriptions: Allergies Allergy/AdvReac Type Severity Reaction Status Date / Time No Known Allergies Allergy Verified 06/24/25 13:48 Exam Data for Last 24 hours Vital signs and Labs for Last 24 Hours: Temp Pulse Resp BP Pulse Ox O2 Del Method O2 Flow Rate 98.1 F 62 16 114/72 97 Room Air 2 07/28/25 12:34 07/28/25 12:34 07/28/25 12:34 07/28/25 12:34 07/28/25 10:40 07/28/25 12:34 07/28/25 10:40 Laboratory Results - last 24 hr 07/28/25 04:00: WBC 14.2 H, RBC 4.99, Hgb 14.2, Hct 43.3, MCV 86.8, MCH 28.5, MCHC 32.8, RDW 13.2, Plt Count 223, MPV 9.9, Neut % (Auto) 92.9 H, Lymph % (Auto) 2.5 L, [place] % (Auto) 3.6, Eos % (Auto) 0.1, Baso % (Auto) 0.3, Neut # (Auto) 13.2 H, Lymph # (Auto) 0.4 L, [place] # (Auto) 0.5, Eos # (Auto) 0.0, Baso # (Auto) 0.0, Total Counted 100, Neutrophils % (Manual) 91 H, Band Neutrophils % 6, Lymphocytes % (Manual) 3 L, Sodium 134 L, Potassium 4.3, Chloride 100, Carbon Dioxide 25, Anion Gap 13.3, BUN 26 H, Creatinine 2.80 H, Estimated Creat Clear 38, Estimated GFR 23 L, Est GFR ( Amer) 28 L, Glucose 140 H, Calcium 8.9, Total Bilirubin 1.0, AST 24, ALT 29, Alkaline Phosphatase 79, Total Protein 7.0, Albumin 4.2, Globulin 2.8, Albumin/Globulin Ratio 1.5, TSH 0.29 L, Salicylates 1.4 L, Acetaminophen < 10 L 07/28/25 11:24: Urine Color Yellow, Urine Appearance Clear, Urine pH 6.0, Ur Specific [place] 1.010, Urine Protein Negative, Urine Glucose (UA) Negative, Urine Ketones Negative, Urine Blood Negative, Urine Nitrate Negative, Urine Bilirubin Negative, Urine Urobilinogen 0.2, Ur Leukocyte Esterase Negative, Urine RBC 5-10, Urine WBC Occasional, Ur Squamous Epith Cells None, Amorphous Sediment 1+, Urine Bacteria None, Urine Opiates Screen Positive H, Urine Me thadone Screen Negative, Ur Barbituates Screen Negative, Ur Phencyclidine Scrn Negative, Ur Amphetamines Screen Negative, U Benzodiazepines Scrn Negative, Urine Cocaine Screen Negative, U Marijuana (THC) Screen Negative I & O for Last 24 hours: Intake & Output 07/25/25 07/26/25 07/27/25 07/28/25 23:59 23:59 23:59 23:59 Intake Total 1999 Balance 1999 Weight 101.151 kg Constitutional Constitutional: mild distress, average body habitus, chronically ill appearing and cooperative *Routine HEENT Exam Head: Present normocephalic Eye: Present EOMI and PERRL ENT: Present mucous membranes moist *Routine Neck Exam Neck: Present supple; Absent lymphadenopathy *Routine Respiratory Exam Respiratory: Present CTA bilaterally; Absent rhonchi, wheezes or crackles *Routine Cardiovascular Exam Cardiovascular: Present RRR *Routine Abdominal Exam Abdominal: Present soft, tenderness, distended and surgical scars (Well-healed midline abdominal scar); Absent normoactive bowel sounds (Hypoactive bowel sound), rebound or guarding *Routine Rectal Exam Rectal:: deferred *Routine Genitalia Exam Genitalia:: deferred *Routine Extremities Exam Extremities: Absent cyanosis, clubbing or edema *Routine Skin Exam Skin: Present warm; Absent rash *Routine Neurological Exam Neurological: Present alert, oriented X3 and moving all extremities; Absent altered mental status Assessment and Plan *Assessment and plan (1) AMS (altered mental status): Status: Acute Category: Medical Code(s): R41.82 - Altered mental status, unspecified (2) Toxic encephalopathy: Status: Acute Category: Medical Code(s): G92.9 - Unspecified toxic encephalopathy (3) Drug overdose: Status: Acute Category: Medical Code(s): T50.901A - Poisoning by unspecified drugs, medicaments and biological substances, accidental (unintentional), initial encounter (4) TANYA (acute kidney injury): Status: Acute Category: Medical Code(s): N17.9 - Acute kidney failure, unspecified (5) Dehydration: Status: Acute Category: Medical Code(s): E86.0 - Dehydration (6) Leukocytosis: Status: Acute Category: Medical Code(s): D72.829 - Elevated white blood cell count, unspecified (7) Hyperthyroidism: Status: Acute Category: Medical Code(s): E05.90 - Thyrotoxicosis, unspecified without thyrotoxic crisis or storm Plan Mr. Cook is a 64-year-old male who presented to the emergency department today via EMS due to altered mental status. Patient's at bedside states he recently refilled his prescription for his trazodone which he took before bed, this morning he was unarousable and she called EMS. Patient takes oxycodone 10 mg twice daily as needed, morphine 15 mg daily, baclofen 10 mg twice daily as needed, and trazodone 300 mg at bedtime. He has a primary medical history of chronic pain, tobacco use, DDD, bowel obstruction with colon resection, hypertension. Workup in the ER was significant for acute kidney injury, creatinine 2.8, toxic metabolic encephalopathy, GCS of 8 on arrival to the ED, patient was also borderline hypotensive. The ED contacted poison control who recommended at least 10 hours of observation time post trazodone ingestion. Patient was given 2 L crystalloid bolus at which time his hypotension improved. Patient continued to be drowsy, answers questions appropriately and is arousable to speech. Hospital medicine was consulted for admission due to TANYA, toxic encephalopathy, dehydration. I agreed to accept the patient, plan of care as follows: #Toxic encephalopathy, drug overdose #Acute kidney injury, creatinine 2.8 #Dehydration ? On admission assessment patient GCS 15. Answers all questions appropriately, still appears somewhat drowsy. Patient states that he took his pain medication as prescribed, he has been out of his trazodone but recently had it filled and took the prescribed dose of 300 mg. ? Patient is hemodynamically stable at this time. Afebrile, normotensive. Continue to monitor. ? IV fluids ordered at 125 mL/H for a total of 3 L, repeat CBC, BMP ordered for the a.m. ? Hold oxycodone, morphine, baclofen, trazodone at this time. Hold lisinopril at this time due to hypotension. #Leukocytosis ? Chest x-ray obtained, personally reviewed no acute findings. Patient does have slightly elevated WBC at 14.2. No signs of infection, likely stress reactive. Will continue to monitor. #Hyperthyroidism ? TSH 0.29, free T3 and T4 pending. Will consider consulting endocrinology. Full code VTE?IPC's Up with assistance Regular diet
--- NOTE | 2025-07-28 16:49 | PC.NURSE ---
PT IS SITTING UP IN THE BED. ALERT AND ORIENTED X4. EATING AND DRINKING WELL. AMBULATES TO THE BATHROOM AND AROUND THE ROOM. LUNG SOUNDS CLEAR ABDOMEN SOFT/NON TENDER WITH ACTIVE BOWEL SOUNDS. SCATTERED ABRASIONS NOTED TO BLE. SMALL ABRASION NOTED TO RIGHT ELBOW. VSS. WILL CONTINUE TO MONITOR.
[2025-07-28] MEDS: TRAZODONE 50MG TABLET 150 MG PO (20:39)
--- NOTE | 2025-07-28 21:28 | ECG_ITS ---
APPROVED REPORT Exam: Resting ECG HR:96 bpm ECG Measurements Heart Rate 96 AXES FL 178 P -48 QRSd 106 QRS -16 QT 353 T 45 QTc 406 Conclusion SINUS RHYTHM NORMAL ECG UNCONFIRMED REPORT Electronically signed by : Jose Luis Titus MD 07/29/2025 11:06:10
[2025-07-28] MEDS: BACLOFEN 10MG TABLET 10 MG PO (21:36)
[2025-07-29 04:00] VITALS: BP 125/60; PULSE 68; RESP 17; TEMP 36.8; O2SAT 96; BMI 28.3
[2025-07-29 06:17] LABS: Hematocrit 40.0 % (42.0-52.0); Hemoglobin 12.7 g/dL (14.1-18.0); Immature Granulocytes % 0.5 %; Mean Corpuscular HGB Conc 31.8 g/dL (31.8-35.4); Mean Corpuscular Hemoglobin 27.7 pg (27.0-31.2); Mean Corpuscular Volume 87.3 fl (80-94); Nucleated Red Blood Cells % 0 %; Platelet Count 185 K/mm3 (142-424); Red Blood Count 4.58 M/mm3 (4.60-6.20); Red Cell Distribution Width-SD 42.3 fL; White Blood Count 6.4 K/mm3 (4.8-10.8)
[2025-07-29 06:34] LABS: Anion Gap 10.1 mEq/L (5-15); Blood Urea Nitrogen 23 mg/dl (9-20); Calcium 8.3 mg/dl (8.4-10.2); Carbon Dioxide 23 mmol/L (22.0-30.0); Chloride 108 mmol/L (98-107); Creatinine Clearance Estimated 87 mL/min (50-200); Creatinine,Serum 1.20 mg/dl (0.66-1.25); Estimated Glomerular Filt Rate 61 ml/min (>60); GFR (African American) 74 ML/MIN (>60); Glucose 100 mg/dl (74-100); Magnesium 2.2 mg/dl (1.6-2.3); Potassium 4.1 mmoL/L (3.5-5.1); Sodium 137 mmol/L (136-145)
[2025-07-29 08:00] VITALS: BP 141/69; PULSE 69; RESP 17; TEMP 36.6; O2SAT 96
--- NOTE | 2025-07-29 08:26 | P.DS_ITS ---
<Statement entered by Jeff Boone MD - 07/29/25 13:12> Rounded on patient after nurse practitioner. Personally examined and interviewed patient. Agree with exam findings and care plan as documented. General Admission date:: 07/28/25 Discharge date: 07/29/25 HPI HPI HPI: Mr. Cook is a 64-year-old male who presented to the emergency department today via EMS due to altered mental status. Patient's at bedside states he recently refilled his prescription for his trazodone which he took before bed, this morning he was unarousable and she called EMS. Patient takes oxycodone 10 mg twice daily as needed, morphine 15 mg daily, baclofen 10 mg twice daily as needed, and trazodone 300 mg at bedtime. He has a primary medical history of chronic pain, tobacco use, DDD, bowel obstruction with colon resection, hypertension. Workup in the ER was significant for acute kidney injury, creatinine 2.8, toxic metabolic encephalopathy, GCS of 8 on arrival to the ED, patient was also borderline hypotensive.The ED contacted poison control who recommended at least 10 hours of observation time post trazodone intake. Patient was given 2 L crystalloid bolus at which time his hypotension improved. Hospital Course Hospital Course Hospital Course: Mr. Cook is a 64-year-old male who presented to the emergency department yesterday via EMS due to altered mental status. Patient's stated he recently refilled his prescription for his trazodone which he took before bed, he was unarousable yesterday morning and she called EMS. Patient takes oxycodone 10 mg twice daily as needed, morphine 15 mg daily, baclofen 10 mg twice daily as needed, and trazodone 300 mg at bedtime. He has a primary medical history of chronic pain, tobacco use, DDD, bowel obstruction with colon resection, hypertension. Workup in the ER was significant for acute kidney injury, creatinine 2.8, toxic metabolic encephalopathy, GCS of 8 on arrival to the ED, patient was also borderline hypotensive. The ED contacted poison control who recommended at least 10 hours of observation time post trazodone ingestion. Patient was given 2 L crystalloid bolus at which time his hypotension improved. Patient continued to be drowsy, answered questions appropriately and was arousable to speech. Hospital medicine was consulted for admission due to TANYA, toxic encephalopathy, dehydration. I agreed to accept the patient, plan of was as follows: #Toxic encephalopathy, resolved #Acute kidney injury, resolved #Dehydration, resolved ? On admission assessment patient GCS 15. Answers all questions appropriately.patient was observed overnight, trazodone 150 mg was given at bedtime. Patient tolerated well with no episodes of acute confusion or disorientation. Discussed with patient reducing dose to trazodone 150 mg nightly as needed for sleep. Patient should follow-up with PCP. ? Patient remained hemodynamically stable during admission, at discharge BP 141/69, pulse 69. ? Lab work day of discharge unremarkable. Kidney function stable, BUN 23, creatinine 1.2. No electrolyte abnormalities noted. ?Continue baclofen 10 mg twice daily as needed, morphine 50 mg daily, oxycodone 10 mg daily as needed. #Leukocytosis, resolved ? Chest x-ray was unremarkable, WBC 6.4-day of discharge. Leukocytosis on admission likely reactive. #Hyperthyroidism ? TSH 0.29, free T4 1.32. Discussed with patient hyperthyroidism, he states that this has been ongoing. He denies notable side effects. Follow-up with PCP. Continue lisinopril 10 mg daily and tamsulosin 0.4 mg daily. Total time spent on discharge 32 minutes in counseling, documentation, chart review, and direct care with patient. Exam Data for Last 24 hours Vital signs and Labs for Last 24 Hours: Temp Pulse Resp BP Pulse Ox O2 Del Method O2 Flow Rate 98 F 69 17 141/69 H 96 Room Air 2 07/29/25 08:00 07/29/25 08:00 07/29/25 08:00 07/29/25 08:00 07/29/25 08:00 07/29/25 08:00 07/28/25 10:40 Laboratory Results - last 24 hr 07/28/25 04:00: TSH 0.29 L, Free T4 1.32 07/28/25 11:24: Urine Color Yellow, Urine Appearance Clear, Urine pH 6.0, Ur Specific [place] 1.010, Urine Protein Negative, Urine Glucose (UA) Negative, Urine Ketones Negative, Urine Blood Negative, Urine Nitrate Negative, Urine Bilirubin Negative, Urine Urobilinogen 0.2, Ur Leukocyte Esterase Negative, Urine RBC 5-10, Urine WBC Occasional, Ur Squamous Epith Cells None, Amorphous Sediment 1+, Urine Bacteria None, Urine Opiates Screen Positive H, Urine Methadone Screen Negative, Ur Barbituates Screen Negative, Ur Phencyclidine Scrn Negative, Ur Amphetamines Screen Negative, U Benzodiazepines Scrn Negative, Ur ine Cocaine Screen Negative, U Marijuana (THC) Screen Negative 07/29/25 05:56: WBC 6.4 D, RBC 4.58 L, Hgb 12.7 L, Hct 40.0 L, MCV 87.3, MCH 27.7, MCHC 31.8, RDW 13.3, Plt Count 185, MPV 9.3, Neut % (Auto) 74.8, Lymph % (Auto) 12.4, [place] % (Auto) 8.4, Eos % (Auto) 3.4, Baso % (Auto) 0.5, Neut # (Auto) 4.8, Lymph # (Auto) 0.8, [place] # (Auto) 0.5, Eos # (Auto) 0.2, Baso # (Auto) 0.0, Sodium 137, Potassium 4.1, Chloride 108 H, Carbon Dioxide 23, Anion Gap 10.1, BUN 23 H, Creatinine 1.20 D, Estimated Creat Clear 87, Estimated GFR 61, Est GFR ( Amer) 74 D, Glucose 100, Calcium 8.3 L, Magnesium 2.2 I & O for Last 24 hours: Intake & Output 07/26/25 07/27/25 07/28/25 07/29/25 23:59 23:59 23:59 23:59 Intake Total 2240 / 2240 Output Total 0 / 0 Balance 2240 / 2240 0 / 0 Weight 101.151 kg 100.335 kg Constitutional Constitutional: no acute distress, average body habitus and cooperative *Routine HEENT Exam Head: Present normocephalic ENT: Present mucous membranes moist *Routine Neck Exam Neck: Present supple and full ROM; Absent lymphadenopathy *Routine Respiratory Exam Respiratory: Present CTA bilaterally, able to speak in complete sentences and symmetric chest movement; Absent wheezes or crackles *Routine Cardiovascular Exam Cardiovascular: Present RRR; Absent murmur *Routine Abdominal Exam Abdominal: Present soft and normoactive bowel sounds; Absent tenderness or distended *Routine Extremities Exam Extremities: Present full ROM and pulses intact; Absent clubbing or edema *Routine Skin Exam Skin: Present intact and dry; Absent rash *Routine Neurological Exam Neurological: Present alert, oriented X3, moving all extremities and normal speech Routine Psychiatric Exam Psychiatric: Present normal affect Results Data Completed and Pending Labs on day of discharge: Labs from last 24 hours 07/29/25 07/28/25 07/28/25 05:56 11:24 04:00 WBC 6.4 D RBC 4.58 L Hgb 12.7 L Hct 40.0 L MCV 87.3 MCH 27.7 MCHC 31.8 RDW 13.3 Plt Count 185 MPV 9.3 Neut % (Auto) 74.8 Lymph % (Auto) 12.4 [place] % (Auto) 8.4 Eos % (Auto) 3.4 Baso % (Auto) 0.5 Neut # (Auto) 4.8 Lymph # (Auto) 0.8 [place] # (Auto) 0.5 Eos # (Auto) 0.2 Baso # (Auto) 0.0 Sodium 137 Potassium 4.1 Chloride 108 H Carbon Dioxide 23 Anion Gap 10.1 BUN 23 H Creatinine 1.20 D Estimated Creat Clear 87 Estimated GFR 61 Est GFR ( Amer) 74 D Glucose 100 Calcium 8.3 L Magnesium 2.2 TSH 0.29 L Free T4 1.32 Urine Color Yellow Urine Appearance Clear Urine pH 6.0 Ur Specific [place] 1.010 Urine Protein Negative Urine Glucose (UA) Negative Urine Ketones Negative Urine Blood Negative Urine Nitrate Negative Urine Bilirubin Negative Urine Urobilinogen 0.2 Ur Leukocyte Esterase Negative Urine RBC 5-10 Urine WBC Occasional Ur Squamous Epith Cells None Amorphous Sediment 1+ Urine Bacteria None Urine Opiates Screen Positive H Urine Methadone Screen Negative Ur Barbituates Screen Negative Ur Phencyclidine Scrn Negative Ur Amphetamines Screen Negative U Benzodiazepines Scrn Negative Urine Cocaine Screen Negative U Marijuana (THC) Screen Negative DS: Diagnosis Discharge Diagnosis (1) AMS (altered mental status): Status: Acute Code(s): R41.82 - Altered mental status, unspecified (2) Toxic encephalopathy: Status: Acute Code(s): G92.9 - Unspecified toxic encephalopathy (3) Drug overdose: Status: Acute Code(s): T50.901A - Poisoning by unspecified drugs, medicaments and biological substances, accidental (unintentional), initial encounter (4) TANYA (acute kidney injury): Status: Acute Code(s): N17.9 - Acute kidney failure, unspecified (5) Dehydration: Status: Acute Code(s): E86.0 - Dehydration (6) Leukocytosis: Status: Acute Code(s): D72.829 - Elevated white blood cell count, unspecified (7) Hyperthyroidism: Status: Acute Code(s): E05.90 - Thyrotoxicosis, unspecified without thyrotoxic crisis or storm Meds Home Medications and Allergies Home Medications ?Medication ?Instructions ?Recorded ?Confirmed ?Type baclofen 10 mg tablet 10 mg PO BIDP PRN Mild Pain (Scale 09/02/24 07/28/25 History Score 1-4) lisinopril 10 mg tablet 10 mg PO DAILY #100 tabs 04/0407/28/25 Rx latanoprost 0.005 % eye drops 1 drp Eye-Both HS 07/28/25 History morphine 15 mg tablet,extended 15 mg PO DAILY 07/28/25 07/28/25 History release oxycodone 10 mg tablet 10 mg PO BIDP PRN Moderate P ain 07/28/25 07/28/25 History (Scale Score 5-6) prednisolone acetate 1 % eye 1 drp Eye-Right BID 07/2807/28/25 History drops,suspension tamsulosin 0.4 mg capsule 0.4 mg PO DAILY 07/28/25 History trazodone 50 mg tablet 150 mg (3 x 50 mg) PO HS #0 tabs 07/29/25 Rx New Prescriptions to Start Prescriptions: Allergies Allergy/AdvReac Type Severity Reaction Status Date / Time No Known Allergies Allergy Verified 06/24/25 13:48 Discharge Plan Disposition Patient Disposition: Home, Self-Care Condition: Good Follow up Plan Follow up with: Maribeth Elena PA [Referring, Medical] - Enter time for follow up Referral Note: call for follow up appointment Prescriptions/Medication Reconciliation: New trazodone 50 mg Tablet 150 mg PO HS Qty: 0 0RF Continued lisinopril 10 mg tablet 10 mg PO DAILY Qty: 100 3RF baclofen 10 mg tablet 10 mg PO BIDP PRN (Reason: Mild Pain (Scale Score 1-4)) latanoprost 0.005 % drops 1 drp Eye-Both HS Patient Comments: INSTILL ONE DROP IN EACH EYE EVERY DAY IN THE EVENING prednisolone acetate 1 % drops,suspension 1 drp Eye-Right BID Patient Comments: INSTILL ONE DROP IN THE RIGHT EYE TWICE DAILY tamsulosin 0.4 mg capsule 0.4 mg PO DAILY morphine 15 mg tablet extended release 15 mg PO DAILY Patient Comments: TAKE ONE TABLET BY MOUTH EVERY DAY MAY CAUSE DROWSINESS oxycodone 10 mg tablet 10 mg PO BIDP PRN (Reason: Moderate Pain (Scale Score 5-6)) Discontinued trazodone 150 mg tablet 300 mg PO HS Problem Reconciliation Problems Reviewed?: Yes Patient Discharge Instructions ACTIVITY: Continue current activity DIET: continue same diet Patient Instructions: Hyperthyroidism, Acute Kidney Injury, DI for Altered Mental Status Print Language: Irish Providers Primary Care Provider: Provider,Referral Admit Provider: Jeff Boone Attending Provider: Jeff Boone
[2025-07-29] MEDS: TAMSULOSIN 0.4MG CAPSULE 0.4 MG PO (08:33)
[2025-07-29] MEDS: LISINOPRIL 10MG TABLET 10 MG PO (08:33)
[2025-07-29] MEDS: prednisoLONE 1% OPTH SOL 5ML OP (08:35)
[2025-07-30 08:33] LABS: Triiodothyronine (T3) Free 3.3 pg/mL (2.0-4.4)
--- NOTE | 2025-08-02 11:17 | SW/DCPLANNER ---
Phoned patient x2. Left message with name and a call back number each time. Wang Wong
== END 2025-07-29 12:40 | disposition home or self-care (01) ==
LOC: ER 08:15 → 2ND 11:10
PROVIDERS: Emergency Medicine; Admitting Provider Internal Medicine Adolescent Medicine; Emergency Provider Student in an Organized Health Care Education/Training Program; Visit Provider Internal Medicine Adolescent Medicine
DX: T50.991A Poisoning by other drugs, medicaments and biological substances, accidental (unintentional), initial encounter (principal); R41.82 Altered mental status, unspecified; G92.8 Other toxic encephalopathy; N17.9 Acute kidney failure, unspecified; E86.0 Dehydration; D72.829 Elevated white blood cell count, unspecified; E05.90 Thyrotoxicosis, unspecified without thyrotoxic crisis or storm; I10 Essential (primary) hypertension; I95.9 Hypotension, unspecified; F17.210 Nicotine dependence, cigarettes, uncomplicated; M54.9 Dorsalgia, unspecified; G89.29 Other chronic pain; Z79.890 Hormone replacement therapy; Z79.899 Other long term (current) drug therapy
CPT/HCPCS: 36415; 71045; 80048; 80053; 80307; 80329; 81001; 83735; 84439; 84443; 84481; 85007; 85025; 93005; 96360; 96361; 99285; G0378; J7030